=== PATIENT | female | born 1955 | race African-American/Black ===

== ENCOUNTER 2016-12-09 12:31 | Emergency (ER) | payer SELFPAY ==
[2016-12-09 13:22] VITALS: BP 166/85
[2016-12-09] MEDS ORDERED: Tetracaine 0.5% OPTH.SOL 15ML* BTL ONE (15:03)
[2016-12-09] MEDS ORDERED: Fluorescein Sodium TOPICAL* 1 MG TEST ONE (15:03)
[2016-12-09] MEDS ORDERED: BSS OPTH.SOL* BTL ONE (15:03)
--- NOTE | 2016-12-09 15:16 | UC ---
Eye Complaint HPI - HPI Summary HPI Summary: 61 female presents complaining of left eye pain after scratching her eye upon waking this morning 12/09/16. Patient states she frequently scratches her eye due to dry eyes and her lid getting caught on old corneal abrasions. This morning the pain was 10/10 however it has since subsided. She is light sensitive and has been wearing sunglasses. She was at first unable to open her eye at all and it was very teary. Now, she is able to open her eye without minimal pain however it is still light sensitive. Denies any other issues at this time. Denies foreign body. Describes it as feeling like "a piece of sand stuck in my eye". She tried using her moisturizing drops without much relief. She does not wear contact lenses. Denies changes in vision/loss of vision at this time. Slightly blurry at times. - History of Current Complaint Chief Complaint: UCEye Stated Complaint: EYE ISSUE Time Seen by Provider: 12/09/16 14:36 Hx Obtained From: Patient ?: No Onset/Duration: Sudden Onset Timing: Constant Severity Initially: Severe Severity Currently: Mild Pain Intensity: 5 Pain Scale Used: 0-10 Numeric Location of Injury: Globe, Sclera Aggravating Factor(s): Light, Blinking Alleviating Factor(s): Darkness Associated Signs And Symptoms: Positive: Photophobia, Drainage (Clear) - Risk Factors Penetrating Injury Risk Factor: Negative Globe Rupture Risk Factors: Negative Acute Glaucoma Risk Factors: Negative Optic Artery Occlusion Risk Factors: Negative - Allergies/Home Medications Allergies/Adverse Reactions: Allergies Allergy/AdvReac Type Severity Reaction Status Date / Time Ciprofloxacin [From Cipro] Allergy Intermediate skin red Verified 12/09/16 13:10 Nitrofurantoin Allergy Intermediate skin red Verified 12/09/16 13:10 [From Macrodantin] Sulfa Drugs Allergy Intermediate skin red Verified 12/09/16 13:10 eggs,milk Allergy Severe Diarrhea Uncoded 12/09/16 13:10 PMH/Surg Hx/FS Hx/Imm Hx Endocrine History Of: Denies: Diabetes, Thyroid Disease Cardiovascular History Of: Reports: Hypertension - ON MEDS Denies: Cardiac Disorders, Pacemaker/ICD Respiratory History Of: Denies: COPD, Asthma GI/ History Of: Denies: Ulcer Cancer History Of: Denies: Breast Cancer - Surgical History Surgical History: Yes Surgery Procedure, Year, and Place: C-sections x 5 - Family History Known Family History: Positive: Unknown - Social History Alcohol Use: None Substance Use Type: None Smoking Status (MU): Never Smoked Tobacco Review of Systems Constitutional: Negative Skin: Negative Eyes: Blurred Vision, Drainage, Photophobia, Other - pain ENT: Negative Respiratory: Negative Cardiovascular: Negative Gastrointestinal: Negative Motor: Negative Neurovascular: Negative Musculoskeletal: Negative Neurological: Negative Psychological: Negative All Other Systems Reviewed And Are Negative: Yes Physical Exam Triage Information Reviewed: Yes Appearance: Well-Appearing, No Pain Distress, Well-Nourished Vital Signs: Initial Vital Signs Temp 97.6 F 12/09/16 13:12 Pulse 61 12/09/16 13:12 Resp 16 12/09/16 13:12 BP 166/85 12/09/16 13:12 Pulse Ox 98 12/09/16 13:12 Vital Signs Reviewed: Yes Eyes: Positive: Conjunctiva Clear, Other: - erythema and swelling not noted. patient was able to open eye. normal visual acuity. PEERLA. photophobia left eye. upon fluroscein stain linear uptake visualized on lateral left eye on sclera approximately .25cm in length linear corneal abrasion. no edema noted ENT: Positive: Normal ENT inspection, Hearing grossly normal, Pharynx normal, TMs normal Neck: Positive: Supple, Nontender Respiratory: Positive: Chest non-tender, Lungs clear, Normal breath sounds Cardiovascular: Positive: RRR, No Murmur, Pulses Normal Abdominal Exam: Normal Musculoskeletal Exam: Normal Neurological Exam: Normal Psychological Exam: Normal Skin Exam: Normal Procedures - Eye Procedure Alcaine Drops Administered: Yes - before flouroscein stain, left eye Eye Complaint Course/Dx - Course Course Of Treatment: patient will be prescribed antibiotic eye drops to use to prevent infection of corneal abrasion. told to continue moisturizing and follow up with eye doctor. instructed not to wear contact lenses. - Differential Dx/Diagnosis Differential Diagnosis/HQI/PQRI: Conjunctivitis, Corneal Abrasion, Foreign Body , Uveitis Provider Diagnoses: corneal abrasion Discharge - Discharge Plan Condition: Stable Disposition: HOME Prescriptions: Polymyx/Trimethoprim OPTH* [Polytrim OPHTH*] 1 drop LEFT EYE Q3H #1 btl Patient Education Materials: Corneal Abrasion (ED) Referrals: [facility] [Outside] Additional Instructions: Use antibiotic drops every 3 hours for the next 5 days to help prevent infection. continue using ibuprofen for pain and moisturizing drops in eye. wait atleast 30 minutes before using moisturizing drops after antibiotic drops. Hot/cold compresses may help. Follow up with eye doctor is recommended. Continue wearing sunglasses for light sensitivity. Do not wear contact lenses and try to keep fingers out of your eye.
== END 2016-12-09 15:20 | disposition home or self-care (01) ==
LOC: UCEAST 12:31
DX: S05.02XA Injury of conjunctiva and corneal abrasion without foreign body, left eye, initial encounter (principal); X58.XXXA Exposure to other specified factors, initial encounter; Y93.89 Activity, other specified; Y92.9 Unspecified place or not applicable; I10 Essential (primary) hypertension; Z88.1 Allergy status to other antibiotic agents; Z88.2 Allergy status to sulfonamides
CPT/HCPCS: 99212; A9270-GY; G0463

== ENCOUNTER 2017-07-02 12:45 | Emergency (ER) | payer SELFPAY ==
[2017-07-02 12:55] VITALS: BP 133/85
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
== END 2017-07-02 13:23 | disposition home or self-care (01) ==
LOC: UCEAST 12:45
DX: M54.2 Cervicalgia (principal); M25.571 Pain in right ankle and joints of right foot; M25.562 Pain in left knee; Z88.2 Allergy status to sulfonamides; Z88.3 Allergy status to other anti-infective agents; Z91.02 Food additives allergy status; Z91.011 Allergy to milk products; I10 Essential (primary) hypertension
CPT/HCPCS: 99212; G0463

== ENCOUNTER 2017-08-16 12:51 | Emergency (ER) | payer BC ==
[2017-08-16] MEDS ORDERED: Aspirin Low Dose CHEW TAB* 81 MG PO ONE (13:02)
--- NOTE | 2017-08-16 13:17 | ED ---
HPI Chest Pain - HPI Summary HPI Summary: Patient presents to the ED with chest pain since last evening. Pain is described as a discomfort and a tightness in her chest. Endorses palpitations. She denies worsening symptoms with exertion. She states she felt a discomfort last night and thought it was her GERD acting up. She is on omeprazole daily. She did not take any medications for relief and slept through the night without discomfort. Today, she awakes with chest pain and now radiating down to her left arm with jaw pain and LUCERO. She has not taken any medication for relief today. She is on Norvasc, Propanolol and HCTZ. Her BP has been higher recently with knee pain. She has HTN at baseline, but denies surgeries or HCL Family history positive for HTN. She has associated LUCERO. Hx of migraines but this feels different. She has been otherwise healthy. Denies orthopnea or SOB. - History of Current Complaint Chief Complaint: EDChestPainROMI Time Seen by Provider: 08/16/17 13:01 Hx Obtained From: Patient Onset/Duration: Started Hours Ago Timing: Constant Initial Severity: Moderate Current Severity: Moderate Pain Intensity: 4 Pain Scale Used: 0-10 Numeric Chest Pain Location: Discrete at:, Mid Sternal Chest Pain Radiates: Yes Chest Pain Radiates To:: Arm, Jaw Character: Crushing, Dull/Aching Aggravating Factor(s): Nothing Alleviating Factor(s): Nothing Associated Signs and Symptoms: Positive: Chest Pain, Headaches - Risk Factors Pulmonary Embolism Risk Factors: Negative TAD Risk Factors: Negative AMI/ACS Risk Factors: Family History, Hypertension - Allergy/Home Medications Allergies/Adverse Reactions: Allergies Allergy/AdvReac Type Severity Reaction Status Date / Time Ciprofloxacin [From Cipro] Allergy Intermediate skin red Verified 12/09/16 13:10 Nitrofurantoin Allergy Intermediate skin red Verified 12/09/16 13:10 [From Macrodantin] Sulfa Drugs Allergy Intermediate skin red Verified 12/09/16 13:10 eggs,milk Allergy Severe Diarrhea Uncoded 12/09/16 13:10 Home Medications: Home Medications Aspirin EC Low Dose* [Ecotrin EC Low Dose 81 MG*] 81 mg PO DAILY 08/16/17 [ History Confirmed 08/16/17] Propranolol TAB* [Inderal TAB*] 80 mg PO QPM 08/16/17 [History Confirmed ] amLODIPine TAB* [Norvasc 5 mg TAB*] 2.5 mg PO DAILY 08/16/17 [History Confirmed 08/16/17] PMH/Surg Hx/FS Hx/Imm Hx Previously Healthy: Yes Endocrine/Hematology History: Denies: Hx Diabetes, Hx Thyroid Disease Cardiovascular History: Reports: Hx Hypertension - ON MEDS Denies: Hx Pacemaker/ICD Respiratory History: Denies: Hx Asthma, Hx Chronic Obstructive Pulmonary Disease (COPD) GI History: Denies: Hx Ulcer Sensory History: Denies: Hx Hearing Aid Psychiatric History: Denies: Hx Panic Disorder - Cancer History Cancer Type, Location and Year: arthritis, migraines, back pain ?sciatica Hx Chemotherapy: No Hx Radiation Therapy: No - Surgical History Surgery Procedure, Year, and Place: C-sections x 5 - Immunization History Hx Pertussis Vaccination: No Immunizations Up to Date: Unable to Obtain/Confirm Infectious Disease History: No Infectious Disease History: Denies: Hx Clostridium Difficile, Hx Hepatitis, Hx Human Immunodeficiency Virus (HIV), Hx of Known/Suspected MRSA, Hx Shingles, Hx Tuberculosis, Hx Known/ Suspected VRE, Hx Known/Suspected VRSA, History Other Infectious Disease, Traveled Outside the [place] in Last 30 Days - Family History Known Family History: Positive: Unknown - Social History Occupation: Employed Full-time Lives: With Family Alcohol Use: None Hx Substance Use: No Substance Use Type: Reports: None Hx Tobacco Use: No Smoking Status (MU): Never Smoked Tobacco Review of Systems - ROS Summary Review of Systems Summary: Constitutional: The patient denies fever, LUCERO. HEENT: Head: The patient denies headaches or dizziness. Eyes: The patient denies diplopia, blurry vision, eye pain, eye discharge, photophobia. Throat: The patient denies sore throats or hoarseness. Cardiovascular: The patient endorses chest pain, palpitations radiating to the left arm. Denies syncope, night cramps, or orthostasis. Respiratory: The patient denies cough, sputum production, hemoptysis, dyspnea, wheezing. Gastrointestinal: The patient denies odynophagia, dysphagia, hematemesis, melenemesis. Denies abdominal pain, nausea or vomiting. Denies constipation or diarrhea. Genitourinary: Patient denies dysuria, hematuria, or pyuria. Patient denies back pain. Denies vaginal discharge, vaginal bleeding. Denies other urinary symptoms. Endocrine: The patient denies polydipsia, polyuria, or polyphagia. Muscles: The patient denies myalgia, strain or weakness. Joints: The patient denies arthralgia and/or arthritis. Neurologic: The patient denies loss of consciousness, or seizure. Endorses LUCERO. Dermatologic: The patient denies hyperpigmentation, rash, or photosensitivity. Constitutional: Negative Eyes: Negative Positive: Palpitations, Chest Pain Respiratory: Negative Positive: no symptoms reported, see HPI Musculoskeletal: Negative - left knee pain at baseline Positive: Arthralgia Skin: Negative Positive: Headache All Other Systems Reviewed And Are Negative: Yes Physical Exam - Summary Physical Exam Summary: Appearance: WDW, comfortable, pleasant, alert Skin: Soft dry skin, no lesions. Nailbeds pink with no cyanosis or clubbing. No petechia noted. Eyes: MARILYNN, EOMI, Conjunctiva pink with no redness or exudates. Mouth: Dentition without lesions. Moist mucosa Neck: Full range of motion. Palpable thyroid. Trachea at midline. No lymphadenopathy. Pulm: Chest symmetrical expansion. No deformities on posterior chest wall. Lungs clear to auscultation and percussion, without adventitious sounds. CV: No JVD. No deformities on anterior chest wall. Heart soundsRRR, Normal S1 and single S2. No S3, S4, rubs, or murmurs. Carotids 2+ bilaterally without bruits. . exam not performed GI: Soft abdomen, bowel sounds normal. No pain on palpation in all 4 quadrants. No organomegaly. Musculoskeletal: Flexion and extension of neck limited d/t pain. Brudzynski and Kernig sign negative. No deformities noted. Pulses full and equal. Neuro: Motor strength is 5/5 in upper and lower extremities bilaterally. A&OX3 Psych: Logical, coherent Triage Information Reviewed: Yes Vital Signs On Initial Exam: Initial Vitals Temp Pulse Resp BP Pulse Ox 97.9 F 64 18 139/89 98 08/16/17 12:55 08/16/17 12:55 08/16/17 12:55 08/16/17 12:55 08/16/17 12:55 Vital Signs Reviewed: Yes Appearance: Positive: Well-Appearing, Well-Nourished Skin: Positive: Warm, Skin Color Reflects Adequate Perfusion Head/Face: Positive: Normal Head/Face Inspection Eyes: Positive: EOMI, MARILYNN, Conjunctiva Clear Neck: Positive: Supple, No Lymphadenopathy Respiratory/Lung Sounds: Positive: Clear to Auscultation, Breath Sounds Present Cardiovascular: Positive: Normal, RRR, Pulses are Symmetrical in both Upper and Lower Extremities Abdomen Description: Positive: Nontender, No Organomegaly, Soft Bowel Sounds: Positive: Present Musculoskeletal: Positive: Normal, Strength/ROM Intact Neurological: Positive: Normal, Sensory/Motor Intact, Alert, Oriented to Person Place, Time Psychiatric: Positive: Normal AVPU Assessment: Alert Diagnostics - Vital Signs Vital Signs Temp Pulse Resp BP Pulse Ox 08/16/17 12:55 97.9 F 64 18 139/89 98 - Laboratory Result Diagrams: 08/16/17 13:19 08/16/17 13:19 Lab Statement: Any lab studies that have been ordered have been reviewed, and results considered in the medical decision making process. Chest Pain Course/Dx - Course Course Of Treatment: During her course of treatment, patient was given aspirin 325mg on arrival. EKG shows: sinus bradycardia rate <60 Bordernline T abnormalities, anterior leads, T flat or neg. V2-V4 Borderline EKG. Trop 0.01 x 2. VS stable with borderline HTN noted. Chest xray with no acute abnormalities. Patient agrees to follow up with Dr Crews's office tomorrow or Sunday and agrees to plan. Return precautions given. Ibuprofen for LUCERO. LUCERO at this time is 2/10 and left sided. Hx of migraines. Discussed with patient she may need further workup and imaging, but will refer back to PCP. Other labs WNL. - Chest Pain Differential Diagnosis/HQI/PQRI: Acute OK, ACS, Angina - Diagnoses Provider Diagnoses: Chest pain Discharge - Discharge Plan Condition: Stable Disposition: HOME Patient Education Materials: Chest Pain (ED) Referrals: Aly Crews MD [Primary Care Provider] - Additional Instructions: Please follow up with Dr. Crews Call office tomorrow for appt. As discussed, we have not found anything on your blood work, images or EKG to suggest heart or lung problems Please rest the next few days and take ibuprofen 600mg three times daily for headache If you develop worsening symptoms, return to the ED.
--- NOTE | 2017-08-16 13:31 | RAD ---
HISTORY: Chest pain COMPARISONS: February 09, 2010 VIEWS: 1: frontal portable view of the chest at 1:09 PM FINDINGS: LINES AND TUBES: None. CARDIOMEDIASTINAL SILHOUETTE: The cardiomediastinal silhouette is normal for portable technique. PLEURA: The costophrenic angles are sharp. No pleural abnormalities are noted. LUNG PARENCHYMA: The lungs are clear. ABDOMEN: The upper abdomen is clear. There is no subphrenic gas. BONES AND SOFT TISSUES: Degenerative changes are noted of the spine IMPRESSION: NO ACTIVE CARDIOPULMONARY DISEASE.
[2017-08-16 13:50] LABS: Hematocrit 41 % (35-47); Hemoglobin 13.9 g/dl (12.0-16.0); Mean Corpuscular HGB Conc 34 g/dl (31-36); Mean Corpuscular Hemoglobin 28 pg (27-31); Mean Corpuscular Volume 83 fL (80-97); Mean Platelet Volume 9 um3 (7.4-10.4); Red Blood Count 4.93 10^6/ul (4.0-5.4); Red Cell Distribution Width 15 % (10.5-15); White Blood Count 5.8 10^3/ul (3.5-10.8)
[2017-08-16 14:08] LABS: Albumin 3.7 g/dL (3.2-5.2); BUN/Creatinine Ratio 15.6 (8-20); Calcium 9.1 mg/dL (8.6-10.3); EGFR African American 82.1 (>60); EGFR Non-African American 63.9 (>60); Globulin 3.7 g/dL (2-4); Magnesium 1.7 mg/dL (1.9-2.7); Potassium 3.2 mmol/L (3.5-5.0); Total Bilirubin 0.7 mg/dL (0.2-1.0); Total Protein 7.4 g/dL (6.4-8.9)
[2017-08-16 14:11] LABS: Troponin I 0.01 ng/mL (<0.04)
[2017-08-16 17:01] VITALS: BP 139/91
== END 2017-08-16 17:01 | disposition home or self-care (01) ==
LOC: ED 12:51
DX: R07.89 Other chest pain (principal); R68.84 Jaw pain; R00.2 Palpitations; R51 Headache; R00.1 Bradycardia, unspecified; M25.562 Pain in left knee; K21.9 Gastro-esophageal reflux disease without esophagitis; I10 Essential (primary) hypertension; Z79.82 Long term (current) use of aspirin; Z88.2 Allergy status to sulfonamides; Z88.1 Allergy status to other antibiotic agents; Z91.012 Allergy to eggs
CPT/HCPCS: 36415; 71010; 80053; 82550; 82553; 83605; 83735; 83874; 83880; 84484; 85025; 85610; 85730; 87040; 93005; 99283; A9270-GY

== ENCOUNTER 2017-10-17 10:31 | Observation (INO) | payer BC ==
[2017-10-17] MEDS ORDERED: Diazepam TAB(*) 5 MG ONE (11:41)
[2017-10-17] MEDS ORDERED: diPHENhydraMINE PO* 25 MG ONE (11:42)
[2017-10-17] MEDS ORDERED: fentaNYL* 50 MCG/ML 2 ML VIAL (100 MCG VIAL) ONE (11:57)
[2017-10-17] MEDS ORDERED: Heparin(*) 1000 UNIT/ML 10 ML VIAL CATH LAB IV ONE (11:57)
[2017-10-17] MEDS ORDERED: Midazolam* 1 MG/ML 10 ML VIAL (10 MG) ONE (11:58)
[2017-10-17] MEDS ORDERED: nitroGLYCERIN DRIP* 25,000 MCG/250 ML BTL ONE ×2 (11:58→14:37)
[2017-10-17] MEDS ORDERED: VERAPAMIL 2.5 MG/ML 4 ML VIAL ONE (11:58)
[2017-10-17] MEDS ORDERED: Lidocaine 1% INJ* 10 MG/ML 30 ML SDV ONE (11:58)
[2017-10-17] MEDS ORDERED: Heparin 2 UNITS/ML IVPREMIX* 2,000 ML IV ONE (11:58)
[2017-10-17] MEDS ORDERED: Iohexol 350 (CONTRAST) 200 ML MDV IV ONE ×2 (12:10→14:05)
[2017-10-17] MEDS ORDERED: Ticagrelor* 90 MG TAB PO ONE (13:35)
[2017-10-17] MEDS ORDERED: Aspirin Low Dose CHEW TAB* 81 MG ONE (13:35)
[2017-10-17] MEDS ORDERED: Nitroglycerin TAB 0.4 MG* 0.4 MG TAB SL PRN (14:51)
[2017-10-17] MEDS ORDERED: oxyCODONE/Acetamin 5/325 MG* TAB PO PRN (14:54)
[2017-10-17] MEDS ORDERED: Albuterol HFA INHALER* 8 gm MDI INH PRN (14:58)
[2017-10-17] MEDS ORDERED: NS 0.9% 1000 ML* 1,000 ML IV SCH (15:00)
[2017-10-17 16:28] LABS: Troponin I 0.01 ng/mL (<0.04)
[2017-10-17 16:53] LABS: HDL Cholesterol 52.3 mg/dL
[2017-10-17] MEDS: Propranolol TAB* 80 MG PO SCH (18:43)
[2017-10-17] MEDS ORDERED: nitroGLYCERIN DRIP* 25,000 MCG/250 ML BTL IV SCH (20:00)
[2017-10-17] MEDS: Ticagrelor* 90 MG TAB PO SCH (20:29)
[2017-10-18 06:57] LABS: BUN/Creatinine Ratio 12.4 (8-20); EGFR African American 83.2 (>60); EGFR Non-African American 64.7 (>60); Potassium 3.3 mmol/L (3.5-5.0)
[2017-10-18] MEDS: Hydrochlorothiazide TAB* 25 MG PO SCH (07:50)
[2017-10-18] MEDS: Aspirin Low Dose CHEW TAB* 81 MG PO SCH (07:50)
[2017-10-18] MEDS: Propranolol TAB* 40 MG PO SCH (07:50)
[2017-10-18] MEDS: Ticagrelor* 90 MG TAB PO SCH ×2 (07:51→21:28)
[2017-10-18] MEDS: amLODIPine TAB* 5 MG PO SCH (07:51)
[2017-10-18] MEDS: Omeprazole CAP* 20 MG PO SCH (07:51)
[2017-10-18] MEDS ORDERED: Potassium Chlor TAB* 20 MEQ TAB.ER PO ONE (09:57)
[2017-10-18] MEDS: Atorvastatin* 80 MG TAB PO SCH ×2 (10:31→17:06)
[2017-10-18] MEDS: Propranolol TAB* 80 MG PO SCH (17:06)
--- NOTE | 2017-10-18 23:53 | CATH ---
CC: Dr. Crews; Dr. Gibson * STENT REPORT: DATE OF PROCEDURE: 10/17/17 - ROOM #452 PRIMARY CARE PHYSICIAN: Dr. Crews. STRETCHING PRESS OPERATOR: Dr. Gibson. PROCEDURES: Right radial artery access, bilateral selective coronary cineangiography. Left heart catheterization, left ventriculography, stent placement LAD distal to proximal 2.25 x 12, 2.5 x 28, 2.5 x 32 drug-eluting stents post dilated with 2.25, 2.5, and 2.75 mm noncompliant balloons. HISTORY: A 62-year-old -[place] woman with morbid obesity and hypertension, 1 month of progressive limiting angina, and Lexiscan with anteroapical moderate zone of ischemia, intermediate risk referred for coronary angiography. PROCEDURE ACCESS: Right radial artery sheath 6F Slender. MEDICATIONS: 1. Subcu lidocaine. 2. IV Versed. 3. IV fentanyl. 4. Heparin 3000 units. 5. Verapamil 3 mg. 6. Nitroglycerin 300 mcg IA, IC nitroglycerin 300 mcg LCA. 7. Heparin 4000 units IV. 8. IV nitroglycerin infusion post procedure. DIAGNOSTIC CATHETER: 5F TIG4, 5F pigtail. GUIDING CATHETER: LAD 6F, LBU 3.5, wire 14 BMW. The LAD required predilatation with a 2.25 mm balloon over most of the area stented. A 2.25 x 12 Xience alpine stent was the deployed at the distal LAD stenosis, 10 atmospheres 20 seconds, post- dilated with a 2.25 x 8 non-NC balloon, 12 atmospheres 10 seconds, and then in the middle of the stent to 20 atmospheres for 30 seconds. A Xience 2.5 x 28 drug- eluting stent was then deployed, overlapping approximately in the first stent 14 atmospheres 20 seconds, a Synergy 2.5 x 32 drug-eluting stent was then deployed then overlapping in the proximal end of the mid LAD stent 11 atmospheres 10 seconds. The 2.75 x 30 NC balloon was then inserted and used to post dilate the proximal half of the 2.5 mm mid LAD stent and the proximal LAD stent to 16 atmospheres 30 seconds, 18 atmospheres 25 seconds. Hemostasis was achieved with a radial band. HEMODYNAMICS: Initial BP 161/70, LV 118/16, no aortic valve gradient on pullback. ANGIOGRAPHY: Left Main: The left main is normal in size and length, has no stenosis. LAD: The LAD is approximately large and then abruptly tapers after the first septal physician underwriter, and then has a very lengthy disease to the distal third of the LAD with a tubular moderate stenosis extending to the moderate first diagonal, which has 30% to 40% ostial stenosis. Just beyond the diagonal, the LAD has a tubular severe approximate 80% stenosis, then reconstitutes for a centimeter, then again has lengthy tubular 80% stenosis before reconstituting, finally followed by a tubular 80% stenosis at the junction of the mid and distal portions of the LAD. The LAD has AZEB-2 flow. Circumflex: The circumflex is large, not dominant, with a small ramus, large first marginal, moderate posterolateral and ends with a small posterolateral, the circumflex has no significant stenosis. The LAD stenosis was unchanged after IC nitroglycerin. RCA: The RCA is large, dominant with a large PDA followed by smaller posterolateral. The RCA has luminal irregularity, but no significant stenosis. LV Gram: Wall motion is normal except for very focal minimal apical hypokinesis , estimated LVEF 55%. After predilatation and placement of 3-0 overlapping drug-eluting stents LAD including jailing of the diagonal branch. The LAD has AZEB-3 flow, the mid LAD has jailed septals that have diminished flow compared to pre-stenting. The jailed diagonal has again 40% ostial stenosis with AZEB-3 flow. There is a smooth 15% residual stenosis beyond the diagonal. CONCLUSION: 1. Single vessel disease LAD with lengthy complex disease, excellent angiographic result with placement of 3 drug-eluting overlapping stents. 2. Normal LV systolic function. 3. Successful right radial artery access. 4. Post stent placement, diminished flow in mid LAD septal perforators accompanied by chest tightness without EKG changes, treated with IV nitroglycerin with subsequent resolution,Type 4a NSTEMI. [id number]/[facility] #: [id number] [facility]
[2017-10-19 08:49] VITALS: BP 138/69
[2017-10-19] MEDS: amLODIPine TAB* 5 MG PO SCH (10:24)
[2017-10-19] MEDS: Aspirin Low Dose CHEW TAB* 81 MG PO SCH (10:24)
[2017-10-19] MEDS: Propranolol TAB* 40 MG PO SCH (10:24)
[2017-10-19] MEDS: Ticagrelor* 90 MG TAB PO SCH (10:24)
[2017-10-19] MEDS: Omeprazole CAP* 20 MG PO SCH (10:25)
[2017-10-19] MEDS: Hydrochlorothiazide TAB* 25 MG PO SCH (10:25)
--- NOTE | 2017-10-20 02:35 | DS ---
CC: Dr. Crews; Dr. Gibson DISCHARGE SUMMARY: DATE OF ADMISSION: 10/17/17 DATE OF DISCHARGE: 10/19/17 PRIMARY CARE PHYSICIAN: Aly Crews MD BULK COOLER INSTALLER: Heather Gibson MD DISCHARGE DIAGNOSES: 1. Non-ST elevation infarct type 4A post PCI. 2. Angina. 3. Abnormal stress test. 4. Morbid obesity. 5. Hyperlipidemia. 6. Hypertension. CONDITION ON DISCHARGE: Stable. PROCEDURES: Cardiac cath, right radial approach on 10/17/17 Dr. Baird, stent placement LAD distal t o proximal 2.25 x 12, 2.5 x 28, 2.5 x 32 drug eluting stents. Telemetry. TELEMETRY DISCHARGE MEDICATIONS: Unchanged. 1. Albuterol. 2. Norvasc 5 mg daily. 3. Hydrochlorothiazide 50 mg daily. 4. Prilosec 20 mg daily. 5. Propranolol 80 mg q.p.m., 40 mg q.a.m. 6. New medication: Brilinta 90 mg b.i.d. minimum 1 year without interruption. With DAPT score of 3, a total of three years of DAPT is recommended. Given her 3 overlapping stents in the LAD, I would r ecommend indefinite DAPT if tolerated. 7. Lipitor 80 mg daily. 8. Aspirin decreased to 81 mg daily to minimize use of Naprosyn. 9. Nitroglycerin 0.4 sublingual p.r.n. FOLLOWUP: Wrist check as scheduled at [facility] and with Dr. Crews as previously. ACTIVITY: To avoid lifting more than 20 pounds right hand, 2 days wound care shower only for two day s. HISTORY: See outpatient H and P by Dr. Gibson. LABORATORY DATA: Preprocedure BMP notable only for potassium of 3.3 likely due to her hydrochlorothi azide. GFR 79.1 with creatinine of 0.93. CBC normal. EKG shows nonspecific ST-T wave changes. Postprocedure EKG remained unchanged with nonspecific ST-T wave changes. Post PCI BMP again hypokale tanya at 3.3, creatinine 0.89. Her troponin peaked at 1.47 with subsequent decrease. She evolved no E KG changes. HOSPITAL COURSE: She underwent outpatient catheterization for evaluation of limiting angina on medic al therapy with intermediate risk anterolateral ischemia by imaging. Cath via the radial approach wa s uncomplicated, demonstrate normal LV systolic function and 1-vessel disease with lengthy complex, d iffuse disease of the LAD involving the entire mid LAD. This was stented with 3 overlapping stents w ith excellent angiographic result. With stenting, she had transient chest discomfort without EKG klever nges, with angiographic evidence of reduce flow in mid LAD small septal perforators. She subsequentl y had troponin rise to 1.47 consistent with type 4A non-ST elevation infarct due to coronary interven tion. She had no arrhythmias. She was kept in the hospital an additional 24 hours for monitoring wi thout any recurrence of chest pain. She had no problems of right wrist access site. She had no arrh ythmias. No heart failure symptoms. She was started on Lipitor because of the high LDL of 159. Cho lesterol was 232, triglycerides 103, HDL 52.3. On the day of discharge, vitals are stable. She is a symptomatic, the right hand is unremarkable. She has received full discharge instructions. I review ed with her uninterrupted dual antiplatelet therapy for minimum of 1 year with the recommendation for subsequent dual antiplatelet therapy for a total of 3 years per the DAPT trial. I also discussed wi th them indefinite dual antiplatelet therapy because of the length of stent of segment in the LAD. W e also discussed activity with secondary risk factor modification. She will follow up for wrist chec k as scheduled, continue follow up with Dr. Gibson. [id number]/[facility] #: [id number]
== END 2017-10-19 14:00 | disposition home or self-care (01) ==
LOC: CHICATH 10:31 → ICU 15:26 → MEDTELE 10-18 15:33
PROVIDERS: ADMIT Internal Medicine Cardiovascular Disease; ATTEND Internal Medicine Cardiovascular Disease
DX: I25.10 Atherosclerotic heart disease of native coronary artery without angina pectoris (principal); I21.4 Non-ST elevation (NSTEMI) myocardial infarction; I20.9 Angina pectoris, unspecified; E66.01 Morbid (severe) obesity due to excess calories; E78.5 Hyperlipidemia, unspecified; I10 Essential (primary) hypertension; Z79.82 Long term (current) use of aspirin; Z79.899 Other long term (current) drug therapy; Z88.2 Allergy status to sulfonamides; Z88.1 Allergy status to other antibiotic agents; Z91.012 Allergy to eggs; Z91.011 Allergy to milk products; Z91.018 Allergy to other foods; Z91.09 Other allergy status, other than to drugs and biological substances; J45.909 Unspecified asthma, uncomplicated
CPT/HCPCS: 36415; 80048; 80061; 84484; 93005; 93458; 99156; 99157; A9270-GY; C1725; C1876; C1887; C9600-LD; G0378; J1644; J2250; J3010

== ENCOUNTER 2017-12-05 13:25 | Emergency (ER) | payer BC ==
--- OUTSIDE RECORDS SUMMARY | 2017-12-05 13:32 | XMS REPORT ---
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 Active Onset: 12/13/2016 Pain in calf Aly Crews M.D. Active Onset: 08/02/2016 Obesity Aly Crews M.D. Active Onset: 08/02/2016 Joint pain Aly Crews M.D. Active Onset: 02/24/2015 Multiple joint pain Aly Crews M.D. Active Onset: 10/05/2014 Acute upper respiratory infection Aly Crews M.D. Active Onset: 09/01/2014 Arthralgia of the lower leg Aly rCews M.D. Active Onset: 02/11/2014 Orthostatic hypotension Aly Crews M.D. Active Onset: 07/23/2012 Acute bronchitis Aly Crews M.D. Active Onset: 07/10/2012 Backache Aly Crews M.D. Active Onset: 04/30/2012 Essential hypertension Aly Crews M.D. Active Social History Type Date Description Comments Smoking Patient has never smoked Allergies, Adverse Reactions, Alerts Date Description Reaction Status Severity Comments Sulfa Drugs active Cipro active Macrodantin active 10/11/2009 Milk active 10/11/2009 Eggs active 10/11/2009 Yeast-related active 03/20/2016 Seasonal active Medications Medication Date Status Form Strength Qnty SIG Indications Ordering Provider Aspirin 81 Low 10/31 Active Chewtabs 81mg 1 by Aly Moralez mouth Breiman, every day M.D. Norvasc 10/31 Active Tablets 5mg 30tab 1 by Aly Rabago s mouth Bessiman, every day M.DCynthia Lipitor 10/31 Active Tablets 80mg 1 by Aly Rabago mouth Breimajoanne, every day M.D. @ 5pm Potassium 10/31 Active Tablets ER 20Meq 30tab bid Aly Rabago Chloride /2016 monica Crews M.D. Brilinta 10/31 Active Tablets 90mg 180ta 1 by Aly Rabago bs mouth Breimajoanne, twice a M.D. day Hydrochlorothiazi 07/18 Active Tablets 50mg 30tab 1 by Aly carrera s mouth Bessiman, every day M.DCynthia Nasonex 12/31 Active Suspension 50mcg/Act 17gm 2 H69.92 Aly Rabago sprays/no Breiman, stril/d M.DCynthia has failed on generics as needed Proventil HFA 10/05 Active Aerosol 108(90Bas 1unit inhale Aly Rabago e) s two puffs Breiman, mcg/Act by mouth M.DCynthia every 4 to 6 hours as needed shortness ofbreath Propranolol HCL 12/24 Active Tablets 40mg 270ta take 1 Aly Rabago bs tablets Breiman, every M.D. morning and take 2 tablets at bedtime Pantoprazole 03/[address] 40mg 90tab Take One Aly Ferrari s Tablet By Breiman, Mouth M.D. Every Day Multivitamin Active Tablets 1 by Unknown Adult /0000 mouth every day prn Isosorbide Active Tablets 30mg Unknown Dinitrate /0000 Aspirtab 08/[address] 324mg Aly Rabago Eleonora, - M.D. 10/31 Norvasc 08/01 Hx Tablets 2.5mg 30tab 1 by Aly Rabago s mouth Eleonora, - every day M.D. 10/31 Medrol 12/13 Hx Tablets 4mg 1pack dose-pack Aly Rabago as Eleonora, - instructe M.D. 01/02 Hydrochlorothiazi 04/24 Hx Tablets 25mg 30tab 1 by Janice s mouth [facility], - every day [facility] 04/24 Propranolol HCL 04/24 Hx Tablets 40mg 90tab 1 tab po s qam and 2 [place], - tabs at [facility]- 04/24 Guaifenesin-Codei 03/20 Hx Syrup 100-10mg/ 120ml 1-[address] [facility], - by mouth np-C 03/27 every hours as needed cough Physical Therapy 02/24 Hx treatment Aly Rabago and Eleonora, - evaluatio M.D. 11/08 n l side upper r side from accident Work Excuse 02/24 Hx unable to Aly Rabago work for [facility], - at least M.D. 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 11/30 Vicodin 09/01 Hx Tablets 5-300mg 30tab 1 by Aly Rabago s mouth at [facility], - night M.DCynthia 11/08 call Guiatuss ac 03/31 Hx Syrup 100-10mg/ 8oz 1-2 tsp q Daisy 5ML 4h prn Amish - cough GRID TRIMMER 05/16 Work Excuse 03/04 Hx unable to Aly Rabago work Aguila Crews this week M.DCynthia 09/01 return sunday the Aspirin Ec 10/[address] 81mg 90tab Take One Aly Rabago s Tablet By Eleonora - Mouth M.DCynthia 03/20 Every Diflucan 09/08 Hx Tablets 150mg 1tabs 1 po x 1 465.0 Delaney CARRIE Pelayo - 02/11 Zithromax Z-Gerardo 07/23 Hx Tablets 250mg 1Pack as Aly Rabago /2011 directed Aguila Crews M.D. 09/02 Physical 07/10 Hx needs PT Aly Rabago Therapy to back Eleonora - include MCarlos 12/06 aqua therapy Hydrochlorothiazi 04/30 Hx Tablets 25mg 90tab take one Daisy s tablet by Amish - mouth GRID TRIMMER 07/18 Physical Therapy 02/01 Hx needs PT Aly Rabago /2010 to back [place]ora - and Felicia 04/30 Zithromax Z-Gerardo 09/13 Hx Tablets 250mg 1Pack as Aly Rabago /2009 directed Aguila Crews M.D. 12/03 Furosemide 07/13 Hx Tablets 20mg 90tab take 1 Aly Rabago s tablet by Eleonora - hernesto M.DCynthia 03/20 once daily Losartan 04/02 Hx Tablets 100mg 90tab Take One Aly Rabago s Tablet By Aguila Crews Mouth M.DCynthia 03/20 Every /2015 Aspir-81 03/[address] 81mg 90tab 1 po qd Aly Rabago /2009 s Aguila Crews M.D. 08/17 Luzma D 24H 03/14 Hx 30uni 1 po qd 461.9 Aly Rbaago /2009 ts Aguila Crews M.D. Back To Work 10/15 Hx PT is Aly Rabago able to Ele[place]ora, - return to M.D. 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 Physical Therapy 10/13 Hx treatment 719.46 Aly Rabago and Eleonora, - evaluatishilpi M.DCynthia 02/11 n right knee pain. workers comp-PT needs to con't with this treatment Work Excuse 10/11 Hx unable to Aly Rabago work [facility], - until M.D. 02/11 Physical Therapy 10/11 Hx needs pt Aly Rabago to drea Crews, - ankle r M.D. 10/13 knee Work Excuse 10/04 Hx unable to Aly Rabago work for [employer], - 1-2 wks M.D. 02/11 Medrol (Gerardo) 10/04 Hx Tablets 4mg 1tabs Aly Rabago Aguila Crews M.DCynthia 11/12 Work Excuse 09/27 Hx patient Aly Rabago has [facility] - appointme M.D. 10/04 nt with 10/04/o9 dt Cozaar 05/17 Hx Tabs 100mg 30tab take 1 Aly Rabago s tablet [place]ora, - once M.D. 04/30 Cozaar 03/31 Hx Tablets 50mg 60tab 1 po bid Aly Rabago s Aguila Crews M.DCynthia 05/17 Proventil HFA 01/07 Hx Aerosol 108mcg/Ac 1unit 2 puffs Aly Rabago t s every 4 Ele[facility]ora - hours as M.D. shortness of breath Robitussin A-C 01/07 Hx 8Oz 1-2 tsp po qhs Aguila Arteaga M.D. 03/31 Out Of Work 01/07 Hx pt seen by omari mahoney, - out of M.D. 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 01/07 Doxycycline 01/02 Hx Capsules 100mg 20cap 1 PO bid Aly J. s Aguila Crews M.D. 01/25 Protonix 06/19 Hx Tablets 40mg 90tab 1 po q.D Aguila Leong M.D. 03/31 Work Excuse 06/19 Hx May Cynthia Return To [facility], - Work M.DCynthia 11/15 Tomorr Keflex 12/02 Hx 500mg 20uni 1 po bid ts Amish, - GRID TRIMMER 11/15 Advair 250/50 12/02 Hx 250/50 1unit one s inhalatio Amish, - ns bid GRID TRIMMER 11/15 Nasonex 12/02 Hx Suspension 50mcg/Act 1unit 2 sprays Deepali De La Rosa s Aguila López nostril Felicia Flexeril 09/12 Hx Tabs 10mg 30tab 1 po tid Daisy s prn Amish, - muscle GRID TRIMMER 11/15 spasm Robitussin ac 11/08 Hx 4Oz 1-2 tsp Janice /[facility] Afnp-C 11/16 Physical Therapy 04/18 Hx treatment Aly Hima /2003 and Eleonora - evaluatio MCarlos 11/15 n right /2005 shoulder, neck and bilateral arm pain Transderm-Scop 11/24 Hx 7unit Use Q Aly Rabago s Three Eleonora, - Days M.D. 01/25 Work Excuse 09/21 Hx unable to Aly Hima /2002 work Ele[place]ora, - until M.D. 12/2809/28/03 Robitussin ac 04/07 Hx 4Oz 1-[address] [facility], - prn Cough Afnp-C 04/14 Doxycycline 04/07 Hx 100mg 20uni 1 PO bid [facility] 04/17 Keflex 12/30 Hx 500 20uni 1 bid X Nilda ts 10 Days Yoly, - Afnp-C 01/09 Lidex Solution 12/30 Hx 60ml apply qd Aly JCynthia prn to Eleonora - walter MCarlos 04/20 Keflex 12/06 Hx 500 20uni 1 bid Collin T. ts Katie - Felicia 12/30 Prilosec 09/19 Hx 20 30uni 1 PO qd Aly JCynthia ts Aguila Crews M.D. 08/17 Lamisil Cream 06/23 Hx 1% 15GMS apply to Aleisha R affected [place], - area bid GRID TRIMMER-C 04/18 Lasix 06/23 Hx 40mg 15uni /2 po Aleisha R ts qod [place], - GRID TRIMMER-C 04/18 Lasix 06/23 Hx Tablets 20mg 30tab one po Aly JCynthia s daily prn Aguila Crews M.D. 05/14 Prednisone 05/15 Hx 10mg 20uni 4 qd x Daisy /2001 ts 2d, 3 qd Amish, - x 2d, 2 GRID TRIMMER 04/18 qd x 2d, /2003 1 qd x 2d Indomethacin 02/07 Hx 25mg Cap 30uni one tid Aly JCynthia ts prn Aguila Crews arthritis Felicia 04/18 Robitussin ac 08/22 Hx 4Oz 1-2 TSP PO Q4H Yoly - geoffreyn Afnp-C 09/01 Inderal 07/04 Hx 40mg 270un 1 po q am Aly Rabago its Aguila Crews M.D. 04/30 2 PO /2011 QHS Doxycycline 11/10 Hx 100mg 20uni 1 PO bid Orestes S. yoandy Mcdonald M.D. - 11/20 Robitussin ac 11/10 Hx Liq 4Oz 1 TSP PO Orestes S. Q4HS prn Felicia Mcdonald - Cough 11/20 Tylox 10/15 Hx 36uni 1 Q8 H Victor Manuel A. ts prn Aguila Kay M.D. 10/27 Darvocet N 100 09/25 Hx 0 100mg/65O 0unit 1 Q4H prn [facility] 10/15 Of Ultram 04/25 Hx 50mg 1 PO Q4H prn [facility] 09[facility]25 [facility] [place] Amitriptyline 04/25 Hx 25mg 120un 1 At hs its prn [facility] 01/21 Of Ceftin 02/06 Hx 250mg 20uni PO bid X ts 10 Days Aguila Frederick 02/16 Amoxicillin 11/08 Hx 250mg 30uni 1 PO tid Romeo MCynthia Aguila Darling M.D. 11/18 Prevacid 03/30 Hx 30 10uni 1 PO qd Aly Rabago Aguila Sorensen M.D. 04/25 Cozaar 10/06 Hx Tabs 50mg 30tab take s tablet by Aguila Arteaga M.D. 03/31 once /2008 daily Zesteril 09/28 Hx 5mg. 30uni 1 PO qd Aly Rabago Aguila Sorensen M.D. 10/06 Robitussin ac 08/25 Hx 4Oz 1-2 TSP Aly Rabago /1997 PO Q4H Aguila Crews Cough M.D. 11/22 Claritin-D, 12HR 08/20 Hx Tabs 30tab one qd Aly Rabago /1997 s Aguila Blake M.D. 01/06 Relafen 05/15 Hx 500mg 20uni 2 PO qd Orestes S. /1997 ts With Yuliet Mcdonald M.D. - Meal 06/04 Azmacort Inhaler 11/16 Hx 1unit use bid Aly Rabago /Carmelo s Aguila Crews M.D. 08/17 Inderal LA 10/28 Hx 40mg 90uni 1qam,2QHS Aly Rabago /1996 Aguila Sorensen M.D. 07/04 Ceftin 10/28 Hx 250mg 20uni 1 po bid Mindy /1997 Aguila Gonzalez M.D. 03/31 Robitussin ac 10/28 Hx 4Oz 1-2 TSP Aly Rabago /1996 PO Q4H Aguila Crews M.D. 03/19 Amoxicillin 09/09 Hx 250mg 24uni 1 PO tid Aly Rabago /1996 Aguila Sorensen M.D. 10/28 Lasix 05/22 Hx 20mg 30uni 1 po qd ts Aguila Krishnamurthy Afnp-C 04/18 Imitrex 05/22 Hx 50mg 9unit 1 po prn Aly Rabago /1996 Aguila Nogueira M.D. 04/30 Nortriptyline 05/22 Hx 20mg 0unit 1 PO qd Aly Rabago /1996 Aguila Nogueira M.D. 10/28 Naprosyn 05/22 Hx 500mg 60uni 1 po bid Aly Rabago /1996 ts Aguila Blake M.D. 04/20 Tramadol HCL 00 Hx Tablets 50mg 1 by Unknown /0000 mouth - every 6 05/16 hours needed Zanaflex 0000 Hx Capsules 4mg 1 by Unknown /0000 mouth - every6- 8 /16 hours needed for spasm Medications Administered in Office Medication Date Status Form Strength Qnty SIG Indications Ordering Provider Injection 01/06/ Administered Injection Aly Rabago Subcutaneous Or 2007 Roselyn Crews M.D. TB Intradermal 04/13/ Administered Injection Aly Lal 2002 Felicia Crews Injection 10/15/ Administered Injection Victor Manuel Blake Subcutaneous Or 1999 Roselyn Kay M.D. Immunizations CPT Code Status Date Vaccine Lot # [id number] Given 08/02/2016 Tdap Tetanus, W Pertussis [id number] Vital Signs Date Vital Result Comment 11/30/2017 BP Systolic 122 mmHg BP Diastolic 78 mmHg Heart Rate 80 /min Body Temperature 98.0 F Respiratory Rate 18 /min Height 59 inches 4'11" Weight 214.00 lb BMI (Body Mass Index) 43.2 kg/m2 10/31/2017 BP Systolic 126 mmHg BP Diastolic 84 mmHg Heart Rate 72 /min Body Temperature 98.6 F Respiratory Rate 16 /min Height 59 inches 4'11" Weight 219.00 lb BMI (Body Mass Index) 44.2 kg/m2 08/17/2017 BP Systolic 112 mmHg BP Diastolic 74 mmHg Heart Rate 64 /min Body Temperature 98.4 F Respiratory Rate 18 /min O2 % BldC Oximetry 98 % Height 59 inches 4'11" Weight 219.38 lb BMI (Body Mass Index) 44.3 kg/m2 08/01/2017 BP Systolic 128 mmHg BP Diastolic 90 mmHg Heart Rate 68 /min Body Temperature 97.7 F Respiratory Rate 16 /min Height 59 inches 4'11" Weight 220.00 lb BMI (Body Mass Index) 44.4 kg/m2 07/18/2017 BP Systolic 142 mmHg BP Diastolic 90 mmHg Heart Rate 68 /min Body Temperature 97.5 F Height 59 inches 4'11" Weight 224.12 lb BMI (Body Mass Index) 45.3 kg/m2 02/06/2017 BP Systolic 122 mmHg BP Diastolic 70 mmHg Heart Rate 66 /min Body Temperature 97.9 F Respiratory Rate 16 /min Height 59 inches 4'11" Weight 224.25 lb BMI (Body Mass Index) 45.3 kg/m2 12/13/2016 BP Systolic 132 mmHg BP Diastolic 84 mmHg Heart Rate 68 /min Body Temperature 97.3 F Respiratory Rate 18 /min Height 59 inches 4'11" Weight 234.00 lb BMI (Body Mass Index) 47.3 kg/m2 08/02/2016 BP Systolic 140 mmHg BP Diastolic 80 mmHg Heart Rate 68 /min Body Temperature 97.9 F Respiratory Rate 18 /min Height 59 inches 4'11" Weight 232.00 lb BMI (Body Mass Index) 46.9 kg/m2 04/24/2016 BP Systolic 122 mmHg BP Diastolic 72 mmHg Heart Rate 64 /min Body Temperature 99.0 F Height 59 inches 4'11" Weight 232.50 lb BMI (Body Mass Index) 47.0 kg/m2 03/20/2016 BP Systolic 134 mmHg BP Diastolic 70 mmHg Heart Rate 64 /min Body Temperature 98.1 F Respiratory Rate 16 /min Height 59 inches 4'11" Weight 230.50 lb BMI (Body Mass Index) 46.6 kg/m2 12/31/2015 BP Systolic 110 mmHg BP Diastolic 80 mmHg Heart Rate 80 /min Body Temperature 9.0 F Respiratory Rate 18 /min Height 59 inches 4'11" Weight 229.00 lb BMI (Body Mass Index) 46.2 kg/m2 11/08/2015 BP Systolic 140 mmHg BP Diastolic 70 mmHg Heart Rate 62 /min Body Temperature 97.8 F Respiratory Rate 29 /min Height 59 inches 4'11" Weight 231.00 lb BMI (Body Mass Index) 46.7 kg/m2 03/03/2015 BP Systolic 136 mmHg BP Diastolic 80 mmHg Heart Rate 78 /min Body Temperature 97.4 F Respiratory Rate 18 /min Height 59 inches 4'11" Weight 225.00 lb BMI (Body Mass Index) 45.4 kg/m2 02/24/2015 BP Systolic 140 mmHg BP Diastolic 80 mmHg Heart Rate 74 /min Body Temperature 97.8 F Respiratory Rate 20 /min Height 59 inches 4'11" Weight 223.00 lb BMI (Body Mass Index) 45.0 kg/m2 11/30/2014 BP Systolic 120 mmHg BP Diastolic 80 mmHg Heart Rate 76 /min Body Temperature 101.2 F Respiratory Rate 18 /min Height 59 inches 4'11" Weight 226.00 lb BMI (Body Mass Index) 45.6 kg/m2 10/05/2014 BP Systolic 136 mmHg BP Diastolic 80 mmHg Heart Rate 66 /min Body Temperature 97.7 F Respiratory Rate 18 /min Height 59 inches 4'11" Weight 231.00 lb BMI (Body Mass Index) 46.7 kg/m2 09/15/2014 BP Systolic 134 mmHg BP Diastolic 80 mmHg Heart Rate 64 /min Body Temperature 97.1 F Respiratory Rate 20 /min Height 59 inches 4'11" Weight 231.00 lb BMI (Body Mass Index) 46.7 kg/m2 09/01/2014 BP Systolic 140 mmHg BP Diastolic 72 mmHg Heart Rate 62 /min Body Temperature 97.8 F Respiratory Rate 20 /min Height 59 inches 4'11" Weight 231.00 lb BMI (Body Mass Index) 46.7 kg/m2 03/04/2014 BP Systolic 118 mmHg BP Diastolic 84 mmHg Heart Rate 78 /min Body Temperature 96.7 F Height 59 inches 4'11" 02/11/2014 BP Systolic 122 mmHg BP Diastolic 70 mmHg Heart Rate 64 /min Body Temperature 96.7 F Respiratory Rate 18 /min Height 59 inches 4'11" Weight 237.00 lb BMI (Body Mass Index) 47.9 kg/m2 09/08/2013 BP Systolic 120 mmHg BP Diastolic 80 mmHg Heart Rate 88 /min Body Temperature 98.3 F Respiratory Rate 16 /min Height 59 inches 4'11" Weight 242.00 lb BMI (Body Mass Index) 48.9 kg/m2 06/13/2013 BP Systolic 122 mmHg BP Diastolic 80 mmHg Heart Rate 72 /min Body Temperature 97.5 F Respiratory Rate 16 /min Height 59 inches 4'11" Weight 245.00 lb BMI (Body Mass Index) 49.5 kg/m2 03/05/2013 BP Systolic 168 mmHg BP Diastolic 104 mmHg Heart Rate 90 /min Body Temperature 98.4 F Height 59 inches 4'11" Weight 247.38 lb BMI (Body Mass Index) 50.0 kg/m2 12/06/2012 BP Systolic 130 mmHg BP Diastolic 90 mmHg Heart Rate 68 /min Body Temperature 97.3 F Height 59 inches 4'11" Weight 247.00 lb BMI (Body Mass Index) 49.9 kg/m2 09/02/2012 BP Systolic 132 mmHg BP Diastolic 82 mmHg Heart Rate 66 /min Body Temperature 98.0 F Height 59 inches 4'11" Weight 252.00 lb BMI (Body Mass Index) 50.9 kg/m2 07/23/2012 BP Systolic 120 mmHg BP Diastolic 88 mmHg Heart Rate 72 /min Body Temperature 98.2 F O2 % BldC Oximetry 97 % Height 59 inches 4'11" Weight 253.00 lb BMI (Body Mass Index) 51.1 kg/m2 07/10/2012 BP Systolic 130 mmHg BP Diastolic 90 mmHg Heart Rate 68 /min Body Temperature 97.4 F Height 59 inches 4'11" Weight 252.00 lb BMI (Body Mass Index) 50.9 kg/m2 05/14/2012 BP Systolic 144 mmHg BP Diastolic 100 mmHg Heart Rate 72 /min Body Temperature 97.8 F Height 59 inches 4'11" Weight 254.00 lb BMI (Body Mass Index) 51.3 kg/m2 04/30/2012 BP Systolic 144 mmHg BP Diastolic 104 mmHg Heart Rate 62 /min Body Temperature 97.0 F Height 59 inches 4'11" Weight 248.00 lb BMI (Body Mass Index) 50.1 kg/m2 02/01/2011 BP Systolic 142 mmHg BP Diastolic 80 mmHg Heart Rate 76 /min Body Temperature 98.2 F Height 59 inches 4'11" Weight 255.00 lb BMI (Body Mass Index) 51.5 kg/m2 09/13/2010 BP Systolic 140 mmHg BP Diastolic 84 mmHg Heart Rate 92 /min Body Temperature 98.2 F 03/14/2010 BP Systolic 112 mmHg BP Diastolic 76 mmHg Heart Rate 98.6 /min Body Temperature 76.0 F Height 59 inches 4'11" Weight 249.00 lb BMI (Body Mass Index) 50.3 kg/m2 02/11/2010 BP Systolic 140 mmHg BP Diastolic 90 mmHg Heart Rate 80 /min Weight 248.00 lb 11/12/2009 BP Systolic 128 mmHg BP Diastolic 80 mmHg Heart Rate 80 /min Body Temperature 97.0 F Height 59 inches 4'11" Weight 255.00 lb BMI (Body Mass Index) 51.5 kg/m2 10/11/2009 BP Systolic 140 mmHg BP Diastolic 82 mmHg Heart Rate 66 /min Body Temperature 97.5 F Weight 251.00 lb 10/04/2009 BP Systolic 150 mmHg BP Diastolic 90 mmHg Heart Rate 76 /min Weight 252.00 lb 03/31/2009 BP Systolic 146 mmHg BP Diastolic 94 mmHg Heart Rate 84 /min Height 59 inches 4'11" Weight 252.00 lb BMI (Body Mass Index) 50.9 kg/m2 01/07/2009 BP Systolic 140 mmHg BP Diastolic 90 mmHg Heart Rate 80 /min Body Temperature 98.7 F Weight 222.00 lb 09/07/2008 BP Systolic 140 mmHg BP Diastolic 88 mmHg Heart Rate 76 /min Height 59 inches 4'11" Weight 259.00 lb BMI (Body Mass Index) 52.3 kg/m2 04/20/2008 BP Systolic 128 mmHg BP Diastolic 80 mmHg Heart Rate 68 /min Height 59 inches 4'11" Weight 258.00 lb BMI (Body Mass Index) 52.1 kg/m2 01/07/2008 BP Systolic 112 mmHg BP Diastolic 70 mmHg Heart Rate 72 /min Height 59 inches 4'11" 03/08/2007 BP Systolic 124 mmHg BP Diastolic 82 mmHg Heart Rate 66 /min Body Temperature 97.2 F Respiratory Rate 15 /min Height 59 inches 4'11" 11/06/2006 BP Systolic 126 mmHg BP Diastolic 82 mmHg Heart Rate 82 /min Body Temperature 99.0 F Respiratory Rate 15 /min Height 59 inches 4'11" 06/25/2006 BP Systolic 120 mmHg BP Diastolic 62 mmHg Heart Rate 72 /min Height 59 inches 4'11" Weight 251.00 lb BMI (Body Mass Index) 50.7 kg/m2 03/06/2006 BP Systolic 112 mmHg BP Diastolic 60 mmHg Heart Rate 72 /min Height 59 inches 4'11" 01/02/2006 BP Systolic 132 mmHg BP Diastolic 80 mmHg Body Temperature 98.2 F Height 59 inches 4'11" 11/15/2005 BP Systolic 120 mmHg BP Diastolic 80 mmHg Heart Rate 68 /min Height 59 inches 4'11" Weight 240.00 lb BMI (Body Mass Index) 48.5 kg/m2 08/21/2005 BP Systolic 126 mmHg BP Diastolic 84 mmHg Heart Rate 76 /min Body Temperature 98.7 F Height 59 inches 4'11" Weight 238.00 lb BMI (Body Mass Index) 48.1 kg/m2 06/19/2005 BP Systolic 110 mmHg BP Diastolic 60 mmHg Heart Rate 60 /min Height 59 inches 4'11" Weight 242.00 lb BMI (Body Mass Index) 48.9 kg/m2 12/02/2004 BP Systolic 126 mmHg BP Diastolic 82 mmHg Heart Rate 80 /min Body Temperature 98.7 F Height 59 inches 4'11" 09/12/2004 BP Systolic 130 mmHg BP Diastolic 80 mmHg Heart Rate 74 /min Body Temperature 98.4 F Height 59 inches 4'11" 08/17/2004 BP Systolic 100 mmHg BP Diastolic 80 mmHg Body Temperature 96.2 F Height 59 inches 4'11" Weight 240.00 lb BMI (Body Mass Index) 48.5 kg/m2 04/18/2004 BP Systolic 124 mmHg BP Diastolic 82 mmHg Heart Rate 72 /min Height 59 inches 4'11" Weight 237.00 lb BMI (Body Mass Index) 47.9 kg/m2 12/28/2003 BP Systolic 120 mmHg BP Diastolic 80 mmHg Heart Rate 72 /min Height 59 inches 4'11" Weight 239.00 lb BMI (Body Mass Index) 48.3 kg/m2 11/24/2003 BP Systolic 120 mmHg BP Diastolic 70 mmHg Heart Rate 74 /min Height 59 inches 4'11" Weight 243.00 lb BMI (Body Mass Index) 49.1 kg/m2 09/21/2003 BP Systolic 118 mmHg BP Diastolic 78 mmHg Heart Rate 72 /min Height 59 inches 4'11" Weight 253.00 lb BMI (Body Mass Index) 51.1 kg/m2 04/13/2003 BP Systolic 136 mmHg BP Diastolic 90 mmHg Heart Rate 80 /min Body Temperature 97.1 F Height 59 inches 4'11" Weight 244.00 lb BMI (Body Mass Index) 49.3 kg/m2 04/07/2003 BP Systolic 122 mmHg BP Diastolic 80 mmHg Body Temperature 98.3 F Height 59 inches 4'11" Weight 237.00 lb BMI (Body Mass Index) 47.9 kg/m2 12/30/2002 BP Systolic 134 mmHg BP Diastolic 76 mmHg Heart Rate 88 /min Height 59 inches 4'11" Weight 244.00 lb BMI (Body Mass Index) 49.3 kg/m2 12/06/2002 BP Systolic 138 mmHg BP Diastolic 92 mmHg Heart Rate 80 /min Body Temperature 97.7 F Height 59 inches 4'11" 10/27/2002 BP Systolic 116 mmHg BP Diastolic 82 mmHg Heart Rate 80 /min Body Temperature 97.3 F Height 59 inches 4'11" 09/19/2002 BP Systolic 114 mmHg BP Diastolic 70 mmHg Heart Rate 76 /min Body Temperature 98.1 F Height 59 inches 4'11" Weight 237.00 lb BMI (Body Mass Index) 47.9 kg/m2 06/23/2002 BP Systolic 120 mmHg BP Diastolic 65 mmHg Body Temperature 98.5 F Height 59 inches 4'11" 05/15/2002 BP Systolic 128 mmHg LG Cuff BP Diastolic 80 mmHg LG Cuff Heart Rate 76 /min Height 59 inches 4'11" Weight 237.00 lb BMI (Body Mass Index) 47.9 kg/m2 02/07/2002 BP Systolic 122 mmHg BP Diastolic 74 mmHg Height 59 inches 4'11" Weight 234.00 lb BMI (Body Mass Index) 47.3 kg/m2 12/17/2001 BP Systolic 110 mmHg BP Diastolic 70 mmHg Heart Rate 84 /min Height 59 inches 4'11" Weight 233.00 lb BMI (Body Mass Index) 47.1 kg/m2 12/04/2001 BP Systolic 130 mmHg BP Diastolic 96 mmHg Heart Rate 64 /min Height 59 inches 4'11" Weight 234.00 lb BMI (Body Mass Index) 47.3 kg/m2 08/22/2001 BP Systolic 128 mmHg BP Diastolic 88 mmHg Heart Rate 78 /min Body Temperature 98.9 F Respiratory Rate 16 /min Height 59 inches 4'11" Weight 239.00 lb BMI (Body Mass Index) 48.3 kg/m2 06/19/2001 BP Systolic 120 mmHg BP Diastolic 80 mmHg Heart Rate 64 /min Height 59 inches 4'11" Weight 242.00 lb BMI (Body Mass Index) 48.9 kg/m2 01/21/2001 BP Systolic 120 mmHg LG Cuff BP Diastolic 90 mmHg LG Cuff Heart Rate 80 /min Height 59 inches 4'11" Weight 245.00 lb BMI (Body Mass Index) 49.5 kg/m2 11/10/2000 Heart Rate 72 /min Body Temperature 97.6 F Weight 244.00 lb 09/25/2000 BP Systolic 120 mmHg BP Diastolic 70 mmHg Heart Rate 62 /min Weight 238.00 lb 08/08/2000 BP Systolic 112 mmHg BP Diastolic 64 mmHg Weight 241.00 lb 06/26/2000 BP Systolic 112 mmHg BP Diastolic 80 mmHg Weight 241.00 lb 04/25/2000 BP Systolic 120 mmHg BP Diastolic 80 mmHg Heart Rate 80 /min Weight 242.00 lb 03/01/2000 BP Systolic 120 mmHg LA LG Cuff BP Diastolic 80 mmHg LA LG Cuff 02/07/2000 Body Temperature 98.2 F 01/19/2000 BP Systolic 112 mmHg LA LG Cuff BP Diastolic 80 mmHg LA LG Cuff 12/08/1999 BP Systolic 112 mmHg LA LG Cuff BP Diastolic 76 mmHg LA LG Cuff 11/22/1999 Body Temperature 96.7 F Weight 233.00 lb 11/08/1999 Body Temperature 98.1 F 11/03/1999 BP Systolic 130 mmHg LA LG Cuff BP Diastolic 70 mmHg LA LG Cuff Weight 228.00 lb 03/30/1999 BP Systolic 128 mmHg LG Cuff BP Diastolic 80 mmHg LG Cuff Body Temperature 98.3 F Weight 228.50 lb 11/02/1998 BP Systolic 112 mmHg LG Cuff BP Diastolic 70 mmHg LG Cuff Weight 228.00 lb 10/06/1998 BP Systolic 110 mmHg LG Cuff BP Diastolic 80 mmHg LG Cuff Weight 226.50 lb 09/27/1998 BP Systolic 142 mmHg LA LG Cuff BP Diastolic 82 mmHg LA LG Cuff Body Temperature 97.4 F Weight 227.00 lb 08/20/1998 BP Systolic 100 mmHg LG Cuff BP Diastolic 70 mmHg LG Cuff Body Temperature 97.7 F Weight 226.00 lb 05/15/1998 BP Systolic 120 mmHg BP Diastolic 78 mmHg 03/19/1998 BP Systolic 110 mmHg BP Diastolic 78 mmHg Weight 227.50 lb 11/16/1997 Body Temperature 97.9 F Height 59.00 inches 10/28/1997 Body Temperature 99.5 F Height 59.00 inches 4'11" Weight 217.00 lb 09/09/1997 BP Systolic 108 mmHg BP Diastolic 60 mmHg Body Temperature 98.0 F Weight 215.00 lb Results Test Date Test Result H/L Range Note Laboratory test finding 08/16/2017 Partial Thrombo 34.4 seconds 26.0- 36.3 Time PTT Lactic Acid 0.8 mmol/L 0.5-2.0 1 B-Type Natriuretic Peptide BNP 38 pg/mL 2 Inr/Protime 08/16/2017 Inr 0.93 0.89-1.11 CBC Auto Diff 08/16/2017 White Blood Count 5.8 10^3/uL 3.5-10.8 Red Blood Count 4.93 10^6/uL 4.0-5.4 Hemoglobin 13.9 g/dL 12.0-16.0 Hematocrit 41 % 35-47 Mean Corpuscular Volume 83 fL 80-97 Mean Corpuscular Hemoglobin 28 pg 27-31 Mean Corpuscular HGB Conc 34 g/dL 31-36 Red Cell Distribution Width 15 % 10.5-15 Platelet Count 304 10^3/uL 150-450 Mean Platelet Volume 9 um3 7.4-10.4 Abs Neutrophils 2.6 10^3/uL 1.5-7.7 Abs Lymphocytes 2.4 10^3/uL 1.0-4.8 Abs Monocytes 0.5 10^3/uL 0-0.8 Abs Eosinophils 0.3 10^3/uL 0-0.6 Abs Basophils 0 10^3/uL 0-0.2 Abs Nucleated RBC 0 10^3/uL Granulocyte % 45.3 % 38-83 Lymphocyte % 40.2 % 25-47 Monocyte % 8.5 % 1-9 Eosinophil % 5.3 % 0-6 Basophil % 0.7 % 0-2 Nucleated Red Blood Cells % 0 CKMB 08/16/2017 CKMB ng/mL 0.9 ng/mL 0.6-6.3 Laboratory test finding 08/16/2017 Magnesium 1.7 mg/dL Low 1.9-2.7 Creatine Kinase(CK) 46 U/L 10-223 Troponin I 0.01 ng/mL <0.04 Myoglobin 19.8 ng/mL 14.3-65.8 Comp Metabolic Panel 08/16/2017 Sodium 137 mmol/L 133-145 Potassium 3.2 mmol/L Low 3.5-5.0 Chloride 103 mmol/L 101-111 Co2 Carbon Dioxide 25 mmol/L 22-32 Anion Gap 9 mmol/L 2-11 Glucose 102 mg/dL High 70-100 Blood Urea Nitrogen 14 mg/dL 6-24 Creatinine 0.90 mg/dL 0.51-0.95 BUN/Creatinine Ratio 15.6 8-20 Calcium 9.1 mg/dL 8.6-10.3 Total Protein 7.4 g/dL 6.4-8.9 Albumin 3.7 g/dL 3.2-5.2 Globulin 3.7 g/dL 2-4 Albumin/Globulin Ratio 1.0 1-3 Total Bilirubin 0.70 mg/dL 0.2-1.0 Alkaline Phosphatase 77 U/L 34-104 Alt 14 U/L 7-52 Ast 15 U/L 13-39 Egfr Non- 63.9 >60 Egfr 82.1 >60 3 Laboratory test finding 08/16/2017 Blood Culture SEE RESULT BELOW 4 Laboratory test finding 08/16/2017 Blood Culture SEE RESULT BELOW 5, 6 Laboratory test finding 08/16/2017 Troponin I 0.01 ng/mL <0.04 CBC Electronic (Fma) 08/05/2016 WBC 8.6 3.6-9.6 RBC 4.93 3.90-5.70 Hemoglobin (Fma/CMC/CTX) 13.9 g/dL 12.1 - 17.2 Hematocrit ([facility]ma/CMC/CTX) 41.7 % 36.1 - 50.3 Platelets 289 10^3/ul 150-400 Lymph% 40.0 % 17.0-48.0 Mixed% 7.1 Neutrophils % 52.9 Mean Corpuscular Vol 85 82.2-97.4 Mean Corpuscular Hemoglobin 28.3 27.6-33.3 Mean Corpuscular Hemo Concen 33.4 32.0-36.0 RDW 14.4 High 11.6-13.7 Mean Platelet Volume 7.2 5.5-11.0 Comprehensive Metabolic Prof 08/05/2016 Sodium 140 mEq/L 134-149 Potassium 4.1 mEq/L 3.6-5.5 Chloride 100 mEq/L 94-112 Carbon Dioxide 24 mEq/L 21-32 Glucose 117 mg/dL High 70-105 7 BUN 23 mg/dL 6-26 Creatinine 1.0 mg/dL 0.6-1.4 BUN/Creat Ratio 23.0 CALC 8.0-36.0 Calcium 9.3 mg/dL 8.6-10.2 Total Protein 7.4 g/dL 6.4-8.3 Albumin 4.0 g/dL 3.8-5.5 Globulin 3.4 g/dL 2.0-4.8 A/G Ratio 1.2 CALC 0.6-2.3 Alk. Phosphatase 77 U/L 30-110 Alt (SGPT) 18 U/L 7-35 Ast (Sgot) 17 U/L 5-34 Total Bilirubin 0.4 mg/dL 0.2-1.3 GFR Non- 60 ml/min/1.73m^ >=60 GFR >60 ml/min/1.73m^ >=60 Lipid Profile 08/05/2016 Cholesterol 230 mg/dL High 120-200 Triglycerides 94 mg/dL 30-200 HDL Cholesterol 56 mg/dL 30-85 LDL (Calculated) 155 CALC High 0-129 VLDL Cholesterol 19 mg/dL 0-50 HDL Risk Factor 4.1 CALC 0.0-4.4 Influenza A&B-fma 11/30/2014 Influenza A pos Influenza B neg Laboratory test finding 10/05/2014 Quickstrep NEGATIVE Negative Comprehensive Metabolic Prof 02/11/2014 Sodium 144 mEq/L 134-149 Potassium 3.5 mEq/L Low 3.6-5.5 8 Chloride 101 mEq/L 94-112 Carbon Dioxide 26 mEq/L 21-32 Glucose 107 mg/dL High 70-105 9 BUN 20 mg/dL 6-26 Creatinine 1.1 mg/dL 0.6-1.4 BUN/Creat Ratio 18.2 CALC 8.0-36.0 Calcium 9.9 mg/dL 8.6-10.2 Total Protein 7.6 g/dL 6.3-8.1 Albumin 4.5 g/dL 3.8-5.5 Globulin 3.1 g/dL 2.0-4.8 A/G Ratio 1.5 CALC 0.6-2.3 Alk. Phosphatase 88 U/L 30-110 Alt (SGPT) 21 U/L 7-35 Ast (Sgot) 13 U/L 5-34 Total Bilirubin 0.7 mg/dL 0.2-1.3 CBC Electronic ([facility]) 02/11/2014 WBC 7.3 3.6-9.6 RBC 4.61 3.90-5.70 Hemoglobin (a/CMC/CTX) 12.9 g/dL 12.1 - 17.2 Hematocrit ([facility]/CMC/CTX) 38.8 % 36.1 - 50.3 Platelets 330 10^3/ul 150-400 Lymph% 39.3 % 17.0-48.0 Mixed% 5.4 Neutrophils % 55.3 Mean Corpuscular Vol 84 82.2-97.4 Mean Corpuscular Hemoglobin 28.0 27.6-33.3 Mean Corpuscular Hemo Concen 33.2 32.0-36.0 RDW 14.2 High 11.6-13.7 Mean Platelet Volume 8.5 5.5-11.0 Comprehensive Metabolic Prof 03/05/2013 Albumin 4.3 g/dL 3.8-5.5 Alk. Phos. 96 U/L 30-110 Alt (SGPT) 22 U/L 7-35 Ast (Sgot) 14 U/L 5-34 BUN 15 mg/dL 6-26 Calcium 9.1 mg/dL 8.6-10.2 Chloride 102 mEq/L 94-112 Creatinine 1.0 mg/dL 0.6-1.4 Carbon Dioxide 24 mEq/L 21-32 Glucose 134 mg/dL High 70-105 10 Sodium 140 mEq/L 134-149 Total Bilirubin 0.6 mg/dL 0.2-1.3 Total Protein 7.4 g/dL 6.3-8.1 Potassium 3.5 mEq/L Low 3.6-5.5 11 Globulin 3.1 g/dL 2.0-4.8 A/G Ratio 1.4 Calc 0.6-2.3 BUN/Creat Ratio 14.5 Calc 8.0-36.0 Lipid Profile 03/05/2013 Cholesterol 245 mg/dL High 120-200 HDL 46 mg/dL 30-85 Triglycerides 126 mg/dL 30-200 HDL Risk Factor 5.3 CALC High 0.0-4.4 LDL (Calculated) 173 CALC High 0-129 VLDL (Calculated) 25 mg/dL 0-50 CBC Electronic ([facility]ma) 03/05/2013 WBC 6.6 3.6-9.6 RBC 4.65 3.90-5.70 Hemoglobin (Fma/CMC/CTX) 13.0 g/dL 12.1 - 17.2 Hematocrit (Fma/CMC/CTX) 39.8 % 36.1 - 50.3 Platelets 321 10^3/ul 150-400 Lymph% 40.7 20.5-51.1 Mixed% 6.6 Neutrophils % 52.7 Mean Corpuscular Vol 86 82.2-97.4 Mean Corpuscular Hemoglobin 28.0 27.6-33.3 Mean Corpuscular Hemo Concen 32.7 32.0-36.0 RDW 12.6 11.6-13.7 Mean Platelet Volume 7.9 6.5-11.0 CBC With Electronic Diff Stat 02/09/2010 White Blood Count 7.5 CUMM 4.8- 10.8 Red Cell Count 4.39 CUMM 4.2-5.4 Hemoglobin 12.5 g/dL 12.0-16.0 Hematocrit 37 % 35-47 Mean Corpuscular Volume 83 um3 79-97 Mean Corpuscular Hemoglob 28 pg 27-31 Mean Corpuscular HGB Cone 34 g/dL 32-36 Redcell Distribution WDTH 15 % 10.5-15 Platelet Count 281 CUMM 150-450 Mean Platelet Volume 9.0 um3 7.4-10.4 Gran % 44.0 % 38-83 Lymph % 43.0 % 25-47 Mononuclear % 8.0 % 1-9 Eosinophil % 3.8 % 0-6 Basophil % 1.2 % 0-2 Abs Lymphs 3.2 1.0-4.8 Abs Mononuclear 0.6 0-0.8 Absolute Neutrophil Count 3.3 1.5-7.7 Abs Eosinophils 0.3 0-0.6 Abs Basophils 0.1 0-0.2 Protime Stat 02/09/2010 Inr 1.05 High 0.97-1.03 12 Protime 12.4 SEC High 11.5-12.2 13 PTT (Aptt) Stat 02/09/2010 PTT (Aptt) 36.3 25.15-38.53 14 Comp Stat 02/09/2010 Sodium 140 mmol/L 135-145 Potassium 3.4 mmol/L Low 3.5-5.0 Chloride 106 mmol/L 101-111 Co2 (Carbon Dioxide) 28.0 mmol/L 22-32 Anion Gap 6.0 mmol/L 2-11 15 Glucose 95 mg/dL 70-100 16 BUN 14 mg/dL 6-24 Creatinine 0.81 mg/dL 0.50-1.40 One Over Creatinine 1.20 BUN/Creatinine Ratio 17.3 8-20 Calcium 8.7 mg/dL 8.1-9.9 17 Total Protein 7.5 GM/DL 6.2-8.1 Albumin 3.7 GM/DL 3.6-5.4 Globulin 3.8 GM/DL 2-4 Albumin/Globulin Ratio 1.0 1-3 Bilirubin Total 0.6 mg/dL 0.4-1.5 18 Alkaline Phosphatase 92 U/L 30-110 Alt (SGPT) 28 U/L 14-54 Ast (Sgot) 28 U/L 12-42 eGFR Non- 78.9 > 60 eGFR 95.5 > 60 19 Laboratory test finding 02/09/2010 Troponin-I (TnI) 0 NG/ML 20 CBC With Electronic Diff 02/27/2008 White Blood Count 7.1 CUMM 4.8-10.8 Abs Basophils 0 0-0.2 Abs Eosinophils 0.2 0-0.6 Absolute Neutrophil Count 3.6 1.5-7.7 Abs Lymphs 2.7 1.0-4.8 Abs Mononuclear 0.5 0-0.8 Basophil % 0.5 % 0-2 Hematocrit 40 % 35-47 Hemoglobin 13.4 g/dL 12.0-16.0 Eosinophil % 3.3 % 0-6 Gran % 50.4 % 38-83 Lymph % 38.8 % 20-45 Mean Corpuscular HGB Cone 34 g/dL 32-36 Mean Corpuscular Hemoglob 28 pg 27-31 Mean Corpuscular Volume 83 um3 79-97 Mean Platelet Volume 9.2 um3 7.4-10.4 Mononuclear % 7.0 % 1-9 Platelet Count 286 CUMM 150-450 Red Cell Count 4.76 CUMM 4.2-5.4 Redcell Distribution WDTH 15 % 10.5-15 Comp Metabolic Panel 02/27/2008 One Over Creatinine 1.25 Anion Gap 4.0 mmol/L 2-11 21 Albumin/Globulin Ratio 1.2 1-3 Albumin 3.5 GM/DL Low 3.6-5.4 Alkaline Phosphatase 94 U/L 30-110 Alt (SGPT) 22 U/L 14-54 Ast (Sgot) 17 U/L 12-42 BUN 13 mg/dL 6-24 Calcium 8.9 mg/dL 8.7-10.2 Chloride 107 mmol/L 101-111 Co2 (Carbon Dioxide) 31.0 mmol/L 22-32 Globulin 2.9 GM/DL 2-4 Glucose 133 mg/dL High 70-105 Potassium 4.5 mmol/L 3.5-5.0 Sodium 142 mmol/L 135-145 Bilirubin Total 0.7 mg/dL 0.4-1.5 Total Protein 6.4 GM/DL 6.2-8.1 BUN/Creatinine Ratio 16.3 8-20 Creatinine 0.8 mg/dL 0.5-1.4 Urinalysis W/Microscopic 02/27/2008 Ua Color YELLOW Appearance-Urine HAZY Bacteria-Urine 3+ Bilirubin-Ur NEGATIVE Negative Blood-Urine 2+ Negative Epith Cells-Ur MODERATE Esterase-Urine TRACE Negative Glucose-Urine NEGATIVE Negative Ketones-Urine NEGATIVE Negative Mucus Urine SMALL Nitrite NEGATIVE Negative PH-Urine 5.0 5-9 Protein-Urine NEGATIVE Negative RBC-Urine 0-2 0-2 Zuuebezspdlu-Fu-YLE NEGATIVE Negative Specific Edwards-Ur 1.024 1.010-1.030 WBC-Urine 5-10 0-5 Laboratory test finding 03/08/2007 Quickstrep NEGATIVE Negative Throat - Beta Strep Fma NEGATIVE @ 48HRS Laboratory test 06/25/2006 Viral Cult. No virus isolate 22 finding General <SEE NOTE> Laboratory test 09/12/2004 Flu A&B POSITIVE Negative finding Basic Metabolic ([facility]) 09/21/2003 Glucose, Serum 128 mg/dL High 70-118 (a/CMC/CTX) BUN (a[place] [place] 13 mg/dL 6-26 Creatinine (a/CMC/CTX) 0.6 mg/dL 0.6-1.4 BUN/Creatinin Ratio 22.8 8.0-36 Sodium 143 134-149 Potassium 4.3 3.6-5.5 Chloride 112 mEq/L 94-112 Co2 27 21-32 Calcium (a[place] [place] 9.5 mg/dL 8.6-10.0 Ua - Non Micro ([facility]) 04/13/2003 Appearance CLEAR/YELLOW Glucose NEG Bilirubin NEG Ketones NEG SP Grav >=1.030 Blood NEG PH 5.0 Protein NEG Urobil 0.2 Nitrite NEG Leukocytes NEG Ua - Micro ([facility]) 06/23/2002 Appearance CLEAR/YELLOW Glucose NEG Bilirubin NEG Ketones NEG SP Grav 1.025 Blood NEG PH 5.0 Protein SSA 1+ Urobil 0.2 Nitrite NEG Leukocytes NEG Hyaline - /Lpf Granular - /Lpf WBC'S 4-8 RBC'S 0-1 Mucus - /Lpf Epith FEW Bacteria 2+ Amorphous - /Lpf Crystals - /Lpf Comments - Comp Metabolic [place] [place] 02/03/2002 Sodium 138 mmol/L 135-145 Potassium 4.0 3.5-5.0 Chloride 101 mmol/L 95-108 Co2 23.3 21-33 Glucose 83 mg/dL 70-105 BUN 11 6-22 Creatinine 0.5 mg/dL 0.5-1.4 BUN/Creatinin Ratio 22.0 High 8-20 Calcium 9.8 mg/dL 8.7-10.2 Total Protein 7.6 GM/DL 6.2-8.1 Albumin 3.9 3.6-5.4 Globulin 3.7 2-4 Albumin / Globulin Ratio 1.1 1-3 Bilirubin, Total 0.5 mg/dL 0.1-1.0 Alkaline Phosphatase 83 U/L 30-110 Alt (SGPT) 15 1-40 Ast (Sgot) 15 1-34 Laboratory test finding 02/03/2002 Uric Acid 3.6 mg/dL 2.4-7.0 CBC With Manual Diff [place] [place] 02/03/2002 WBC 7.0 4.8-10.8 RBC 4.39 4.2-5.4 Hemoglobin 12.6 g/dL 12.0-16.0 Hematocrit 37 % 35-47 Mean Corpuscular Vol 85 79-97 Mean Corpuscular Hemaglobin 29 27-31 Mean Corpuscular Hemo Concen 34 32-36 RDW 14 10.5-15 Platelets 310 CUMM 150-450 Mean Platelet Volume 8.8 7.4-10.4 Poly From [facility] [place] 40 38-83 Band - 0-8 Lymph From [facility] [place] 49 High 5-47 Calloway From [facility] [place] 6 0-13 Eos From [facility] [place] 4 0-6 Atypical Lymph - 0-6 Morphology - Basophils 1 Laboratory test finding 02/03/2002 Anisocytosis 1+ Poikilocytosis SLIGHT Platelet Eval LARGE PLATELETS Sed Rate 16 MM/HR High 0-15 Laboratory test finding 08/22/2001 Throat Culture NEGATIVE Ua - Micro ([facility] [place] 10/25/1999 Color YELLOW Appearance HAZY SP Grav 1.026 1.010-1.030 Esterase TRACE High Negative Nitrite NEGATIVE Negative Urobil POSITIVE High Negative Protein NEGATIVE Negative PH 6.5 5-9 Blood 3+ High Negative Ketones NEGATIVE Negative Bilirubin, Micro NEGATIVE Negative Glucose NEGATIVE mg/dL Negative WBC 3-5 CUMM RBC 0-2 CUMM Mucus N/A Epith FEW Bacteria TRACE [address] [facility] [place] Severe Sepsis and Septic Shock Management Bundle Measure requires all lactic acids initially measuring >2.0 mmol/L be repeated. 2 >100 to <200 pg/mL: likely compensated congestive heart failure (CHF) 200 to 400 pg/mL: likely moderate CHF >400 pg/mL: likely moderate to severe CHF 3 Because ethnic data is not always readily available, this report includes an eGFR for both -Americans and non- Americans. The National Kidney Disease Education Program (NKDEP) does not endorse the use of the MDRD equation for patients that are not between the ages of 18 and 70, are , have extremes of body size, muscle mass, or nutritional status, or are non- or non-. According to the National Kidney Foundation, irrespective of diagnosis, the stage of the disease is based on the level of kidney function: Stage Description GFR(mL/min/1.73 m(2)) 1 Kidney damage with normal or decreased GFR 90 2 Kidney damage with mild decrease in GFR 60-89 3 Moderate decrease in GFR 30-59 4 Severe decrease in GFR 15-29 5 Kidney failure <15 (or dialysis) 4 SEE RESULT BELOW Name: ROXY STARR : [address]: Chad Chaidez MD Acct: [id number] Unit: [id number] AGE: 62 Location: ED Re08/16/17 SEX: F Status: DEP ER SPEC: [id number] KYLE: 08/16/17-[address] [facility] [address]: Vashti THURMAN REQ: [id number] RECD: 08/16/17 STATUS: RES OTHR DR: Aly Chaidez MD _ SOURCE: BLOOD,VENO SPDESC: ORDERED: Blood Cult COMMENTS: COLLECTED FROM RAC Procedure Result Reported Site Aerobic Culture Bottle Preliminary 08/17/17- 1344 ML No Growth Day 1 Anaerobic Culture Bottle Preliminary 08/17/17- 1344 ML No Growth Day 1 * ML - MAIN LAB ([facility]) . END OF REPORT * ML=Testing performed at Main Lab DEPARTMENT OF PATHOLOGY, [address] [place] [address] Romeo Hsieh M.D. Director [facility] # [id number] 5 COLLECTED FROM [facility] SEE RESULT BELOW Name: ROXY STARR : [address]: Chad Chaidez MD Acct: [id number] Unit: [id number] AGE: 62 Location: ED Re08/16/17 SEX: F Status: DEP ER SPEC: [id number] KYLE: 08/16/[address]: Vashti THURMAN REQ: [id number] RECD: 08/16/17 STATUS: KEY MANNING DR: Aly Chaidez MD _ SOURCE: BLOOD,VENO SPDESC: ORDERED: Blood Cult COMMENTS: COLLECTED FROM RAC Procedure Result Reported Site Aerobic Culture Bottle Final 08/21/17- 4 ML No Growth Day 5 Anaerobic Culture Bottle Final 08/21/17- 1343 ML No Growth Day 5 * ML - MAIN LAB ([facility]) . END OF REPORT * ML=Testing performed at Main Lab DEPARTMENT OF PATHOLOGY, [address] [place] [address] Romeo Hsieh M.D. Director [facility] # [id number] 7 RESULTS VERIFIED BY REPEAT ANALYSIS 8 RESULTS VERIFIED BY REPEAT ANALYSIS 9 RESULTS VERIFIED BY REPEAT ANALYSIS 10 RESULT EMELI'D 11 RESULT EMELI'D 12 Recommended INR for Patients on Oral Anticoagulants Prophylaxis 2.0 - 3.0 Treatment of thrombosis 2.0 - 3.0 Prevention of embolism 2.0 - 3.0 Prevention of embolism from prosthetic heart valves 2.5 - 3.5 13 DIAGNOSIS,TREATMENT,AND THERAPY MUST BE BASED ON THE INR VALUE ALONE. 14 PLEASE NOTE NEW REFERENCE RANGE EFFECTIVE 09. 15 Anion gap measurement may be of limited value in the presence of any alkalosis, especially in a combined acid base disorder. . 16 Note change in reference range as of 06/25/08. The change was based on recommendations from the [place] [employer]. 17 Please note change in reference range effective 08 . 18 A metabolite of Naproxen, O-desmethylnaproxen, has been shown to interfere with the [place] method for measuring total bilirubin. Samples from patients who have taken Naproxen have shown spurious elevation in total bilirubin levels. 19 Because ethnic data is not always readily available, this report includes an eGFR for both -Americans and non- Americans. The National Kidney Disease Education Program (NKDEP) does not endorse the use of the MDRD equation for patients that are not between the ages of 18 and 70, are , have extremes of body size, muscle mass, or nutritional status, or are non- or non-. According to the National Kidney Foundation, irrespective of diagnosis, the stage of the disease is based on the level of kidney function: Stage Description GFR(mL/min/1.73 m(2)) 1 Kidney damage with normal or decreased GFR 90 2 Kidney damage with mild decrease in GFR 60-89 3 Moderate decrease in GFR 30-59 4 Severe decrease in GFR 15-29 5 Kidney failure <15 (or dialysis) 20 New Reference Range and Interpretation effective 08/08/2002 TnI (ng/ml) INTERPRETATION Less Than 0.06 ng/mL NOT SUPPORTIVE OF DIAGNOSIS OF SC 0.06 - 0.50 ng/ml INDETERMINATE: SUGGEST SERIAL STUDIES IF CLINICALLY INDICATED. Greater than 0.5 ng/mL CONSISTENT WITH DIAGNOSIS OF SC . 21 Anion gap measurement may be of limited value in the presence of any alkalosis, especially in a combined acid base disorder. . 22 No virus isolated Procedures Date CPT Code Description Status Comment 08/02/2016 53309 Electrocardiogram Complete Completed 03/24/2016 Mammogram Completed 09/15/201409640 Inject/Drain Joint/Bursa Major Completed 07/23/2012 79898 Pulse Oximetry Completed 01/07/2008 27887 Injection Subcutaneous Or Completed Intramuscular 01/07/200832615 Inject Tendon/Ligament/Cyst Completed 12/04/2001 48739 Electrocardiogram Complete Completed 10/15/2000 13394 Injection Subcutaneous Or Completed TORADOL IM LEFT DELT Intramuscular 60MG/2ML-KS 05/15/2000 27955 Excise Benign Lesion <.6CM Completed Trunk/Arm/Leg 09/27/1998 54419 Pulse Oximetry Completed 09/27/1998 74260 Electrocardiogram Complete Completed Encounters Type Date Location Provider CPT E/M Dx Office Visit 10/31/2017 2:00p Main Office Aly Crews M.D. 21085 R07.9 I25.118 I10 M12.9 Office Visit 08/17/2017 2:20p Main Office Aly Crews M.D. 90747 R07.9 Office Visit 08/01/2017 11:20a Main Office Aly Crews M.D. 93142 I10 Office Visit 07/18/2017 11:00a Main Office Aly Crews M.D. 09688 M54.2 I10 M25.562 M79.662 Office Visit 02/06/2017 11:10a [facility] Aly Crews M.D. 85748 M25.562 M79.662 Office Visit 12/13/2016 9:20a Main Office Aly Crews M.D. 20171 M79.662 I10 M25.562 Office Visit 08/02/2016 3:20p Main Office Aly Crews M.D. 32120 Z23 I10 M25.50 E66.09 Z00.00 Office Visit 04/24/2016 1:15p [facility] Matthew Chavez 28361 I10 R60.9 Office Visit 03/20/2016 9:45a [facility] Fide ChavezC 18187 J04.0 Z12.31 R05 Office Visit 12/31/2015 1:30p Main Office Daisy Wellington SHAILESH 51364 H69.92 Office Visit 03/03/2015 2:10p Main Office Aly Crews M.D. 87072 719.49 Office Visit 02/24/2015 5:10p Main Office Aly Crews M.D. 48754 719.49 E880.9 Office Visit 11/30/2014 11:15a [place] [address] 488.89 Office Visit 10/05/2014 10:10a Main Office Aly Crews M.D. 36031 465.9 Office Visit 09/15/2014 1:00p [facility] Aly Crews M.D. 61479 719.46 Office Visit 09/01/2014 3:00p [facility] Aly Crews M.D. 36787 719.46 Office Visit 03/04/2014 3:10p Main Office Aly Crews M.D. 89710 789.02 Office Visit 02/11/2014 2:10p Main Office Aly Crews M.D. 33003 458.0 Office Visit 09/08/2013 7:30p [place] [address] 465.0 Office Visit 06/13/2013 10:10a Main Office Aly Crews M.D. 02338 401.9 Office Visit 03/05/2013 9:40a Main Office Aly Crews M.D. 78400 401.9 Office Visit 12/06/2012 2:10p Main Office Aly Crews M.D. 39028 401.9 719.42 Office Visit 09/02/2012 11:00a Main Office Aly Crews M.D. 45455 401.9 Office Visit 07/23/2012 4:10p [facility] Aly Crews M.D. 43738 466.0 Office Visit 07/10/2012 5:00p Main Office Aly Crews M.D. 66043 401.9 724.5 Office Visit 05/14/2012 4:20p [facility] Aly Crews M.D. 34470 401.9 Office Visit 04/30/2012 3:10p [facility] Aly Crews M.D. 87294 401.9 Office Visit 09/13/2010 3:00p [facility] Aly Crews M.D. 33757 465.9 Office Visit 03/14/2010 2:20p [facility] Deepali Hernandez M.D. 39579 461.9 Office Visit 02/11/2010 11:10a Main Office Aly Crews M.D. 16756 784.0 728.87 Office Visit 03/31/2009 2:40p Main Office Aly Crews M.D. 78056 401.9 719.46 Office Visit 01/07/2009 1:00p Main Office Mindy Arteaga 17729 466.0 M.DCynthia Office Visit 09/07/2008 11:20a Main Office Aly Crews M.D. 58794 719.66 Office Visit 04/20/2008 3:10p Main Office Aly Crews M.D. 25278 719.42 Office Visit 01/07/2008 3:00p [facility] Aly Crews M.D. 30654 880.02 726.31 Office Visit 03/08/2007 11:20a [place] [address] 466.0 462 Office Visit 11/06/2006 4:15p [facility] Matthew Chavez 76220 462 Office Visit 06/25/2006 2:15p Main Office Matthew Chavez 58663 054.6 Office Visit 03/06/2006 3:00p [facility] Aly Crews M.D. 39072 928.20 Office Visit 01/02/2006 4:10p [facility] Aly Crews M.D. 91887 465.9 493.90 Office Visit 11/15/2005 6:00p Main Office Aly Crews M.D. 75171 401.9 Office Visit 08/21/2005 1:00p Main Office Aly Crews M.D. 72095 401.9 Office Visit 06/19/2005 2:40p Main Office Aly Crews M.D. 02868 786.50 Office Visit 12/02/2004 2:15p Main Office KSENIA MoralesP 75586 473.9 Office Visit 09/12/2004 3:15p Main Office SHAILESH Morales 19493 487.1 Office Visit 08/17/2004 3:10p Main Office Aly Crews M.D. 34198 723.1 719.41 Office Visit 04/18/2004 9:10a Main Office Aly Crews M.D. 45734 716.90 401.9 Office Visit 11/24/2003 9:10a [facility] Aly Crews M.D. 59782 729.5 401.9 Office Visit 09/21/2003 9:20a Main Office Aly Crews M.D. 54974 959.2 401.9 Office Visit 04/13/2003 8:40a Main Office Aly Crews M.D. 93926 V70.3 V02.3 Office Visit 04/07/2003 10:30a [facility] Janice HilMatthew ruiz 57741 401.9 465.9 466.0 Office Visit 12/30/2002 4:15p Main Office Nilda Matthew Frederick 77705 949.0 Office Visit 12/06/2002 11:00a Main Office Collin Wilson M.D. 53984 461.0 465.9 Office Visit 09/19/2002 3:10p Main Office Aly Crews M.D. 51279 530.11 Office Visit 06/23/2002 8:00p Main Office SWETHA Hunt 83129 Office Visit 05/15/2002 7:00p Main Office KSENIA MoralesP 72396 Office Visit 02/07/2002 1:40p [facility] Aly Crews M.D. 28539 Office Visit 12/17/2001 1:20p [facility] Aly Crews M.D. 58156 Office Visit 12/04/2001 1:00p [facility] Orestes Mcdonald M.D. 96604 Office Visit 08/22/2001 3:00p Main Office Matthew Saleem 29510 Office Visit 06/19/2001 4:10p Main Office Aly Crews M.D. 11626 Office Visit 01/21/2001 11:20a Main Office Aly Crews M.D. 90558 Office Visit 11/10/2000 12:20p Main Office Orestes Mcdonald M.D. 52487 Office Visit 10/15/2000 10:20a [facility] Victor Manuel Kay M.D. 33425 Office Visit 08/08/2000 7:30p Main Office Matthew Chavez 73114 Plan of Care No Information Available
--- OUTSIDE RECORDS SUMMARY | 2017-12-05 13:32 | XMS REPORT ---
:1955 External Reference #:[id number] Author Organization Setup Address [address] [address] Phone [phone] Care Team Providers Name Role Phone Aly Crews MD Primary Care Physician Unavailable Payers Type Date Identification Numbers Payment Provider Subscriber Commercial Policy Number: [id number] [employer] Sofia Starr PayID: [id number] [address] [address] [place] [address] Problems Description No Information Family History Date Family Member(s) Problem(s) Comments Father No significant health problems Father due to Motor () Vehicle Accident Mother Arterioslerotic cardiovascular disease : (1998) Mother due to CHF Mother Diabetes Mother Congestive Heart Failure (CHF) Mother Hypertension Siblings 11 2 siblings passed. no significant heart problems Social History Type Date Description Comments Marital Status Lives With Son Occupation Youth counseling program leader Cigarette Use Never Smoked Cigarettes ETOH Use Denies alcohol use Smoking Patient has never smoked Recreational Drug Use Never Used Drugs Daily Caffeine Consumes on average 1 cup of Very rarely if needing to regular coffee per day drive Daily Caffeine Consumes on average 1 soda per If needed while driving day Exercise Type/Frequency Exercises sporadically Allergies, Adverse Reactions, Alerts Date Description Reaction Status Severity Comments 10/04/2017 Sulfa Antibiotics active 10/04/2017 Ciprofloxacin active 10/04/2017 Nitrofurantoin active 10/04/2017 Milk-related Compounds active 10/04/2017 Eggs or Egg-derived Products active 10/04/2017 Yeast-related Products active Medications Medication Date Status Form Strength Qnty SIG Indications Ordering Provider Fany 11/09 Active Tablets ER 30mg 30tab one po 24HR s qd Kisha Gibson M.D. K-Tab 10/12 Active Tablets ER 20Meq 30tab 1 by s mouth S. once a Arthur llanos M.D. Norvasc 10/04 Active Tablets 5mg 30tab one po Shadia s qd Kisha Gibson M.D. Aspirin Active Tablets DR 81mg 1 by Unknown /0000 mouth every day Hydrochlorothiazide Active Tablets 50mg 1 by Unknown /0000 mouth every day Nasonex Active Suspension 50mcg/Act use two Unknown /0000 sprays in each nostril once daily prn Propranolol HCL Active Tablets 40mg take 1 Unknown /0000 tablet every morning and take 2 tablets at bedtime Pantoprazole Sodium Active Solution 40mg 1 by Unknown /0000 Rec mouth every day Multivitamin Adult Active Tablets 1 by Unknown /0000 mouth every day prn Grace-C Active Tablets 1000mg prn Unknown /0000 Vitamin B12 Active Tablets 50mcg 1 by Unknown /0000 mouth every day prn Atorvastatin Active Tablets 80mg 1 by Unknown Calcium /0000 mouth every day Nitrostat Active Tablets Sub 0.4mg one sl Unknown /0000 q5min up to 3 doses as needed Brilinta Active Tablets 90mg 1 tab by Unknown /0000 mouth twice a day Ventolin HFA Active Aerosol 108(90Bas 2 puffs Unknown /0000 e) by mouth mcg/Act four times a day as needed Norvasc Hx Tablets 2.5mg 1 by Unknown /0000 mouth - every Proventil HFA Hx Aerosol 108(90Bas inhale Unknown /0000 e) two - mcg/Act puffs by 10/09 four times a day as needed Naproxen Hx Tablets 500mg 1 tablet Unknown /0000 with - food by 10/16 twice a day Vital Signs Date Vital Result Comment 11/09/2017 Height 59.5 inches 4'11.50" Weight 218.75 lb w/o shoes Heart Rate 68 /min BP Systolic Sitting 126 mmHg Ra lrg cuff BP Diastolic Sitting 82 mmHg Ra lrg cuff BMI (Body Mass Index) 43.4 kg/m2 Ejection Fraction 50%-55% echo 10/15/17 10/23/2017 Height 59.5 inches 4'11.50" Weight 216.00 lb Heart Rate 74 /min BP Systolic Sitting 136 mmHg Lue large cuff BP Diastolic Sitting 88 mmHg Lue large cuff BP Systolic Standing 124 mmHg BP Diastolic Standing 88 mmHg Respiratory Rate 18 /min BMI (Body Mass Index) 42.9 kg/m2 Ejection Fraction 50-55% 10/15/17 10/04/2017 Height 59.5 inches 4'11.50" Weight 220.50 lb w/ shoes Heart Rate 66 /min BP Systolic Sitting 132 mmHg LA lrg cuff BP Diastolic Sitting 88 mmHg LA lrg cuff BMI (Body Mass Index) 43.8 kg/m2 Results Test Date Test Result H/L Range Note Cath Panel 10/12/2017 Partial Thrombo Time PTT 33.3 seconds 26.0-36.3 CBC Auto Diff 10/12/2017 White Blood Count 7.5 10^3/uL 3.5-10.8 Red Blood Count 4.76 10^6/uL 4.0-5.4 Hemoglobin 13.3 g/dL 12.0-16.0 Hematocrit 40 % 35-47 Mean Corpuscular Volume 84 fL 80-97 Mean Corpuscular Hemoglobin 28 pg 27-31 Mean Corpuscular HGB Conc 33 g/dL 31-36 Red Cell Distribution Width 15 % 10.5-15 Platelet Count 304 10^3/uL 150-450 Mean Platelet Volume 9 um3 7.4-10.4 Abs Neutrophils 3.3 10^3/uL 1.5-7.7 Abs Lymphocytes 3.2 10^3/uL 1.0-4.8 Abs Monocytes 0.6 10^3/uL 0-0.8 Abs Eosinophils 0.4 10^3/uL 0-0.6 Abs Basophils 0.1 10^3/uL 0-0.2 Abs Nucleated RBC 0.01 10^3/uL Granulocyte % 43.4 % 38-83 Lymphocyte % 42.7 % 25-47 Monocyte % 7.7 % 1-9 Eosinophil % 5.1 % 0-6 Basophil % 1.1 % 0-2 Nucleated Red Blood Cells % 0.1 Inr/Protime 10/12/2017 Inr 0.90 0.77-1.02 1 Basic Metabolic Panel 10/12/2017 Sodium 140 mmol/L 133-145 Potassium 3.3 mmol/L Low 3.5-5.0 Chloride 102 mmol/L 101-111 Co2 Carbon Dioxide 30 mmol/L 22-32 Anion Gap 8 mmol/L 2-11 Glucose 87 mg/dL 70-100 Blood Urea Nitrogen 16 mg/dL 6-24 Creatinine 0.93 mg/dL 0.51-0.95 BUN/Creatinine Ratio 17.2 8-20 Calcium 9.3 mg/dL 8.6-10.3 Egfr Non- 61.5 >60 Egfr 79.1 >60 2 1 Please note the change in INR reference range effective 17. 2 Because ethnic data is not always readily [...] 15-29 5 Kidney failure <15 (or dialysis) Procedures Date CPT Code Description Status 11/09/2017 80349 EKG Tracing & Interpretation Completed 10/23/2017 76695 EKG Tracing & Interpretation Completed 10/23/2017 40288 EKG Tracing & Interpretation Completed 10/17/2017 54433 Left Heart Cath. Incl S/I Coronaries, Angio S/I V Gram Completed If Done 10/17/2017 93662 Percutaneous Transcatheter Placement Of Intracoronary Completed Stent 10/15/2017 08118 ECHO Transthorasic Realtime 2D W Doppler & Color Completed Flow Hosp 10/04/2017 49073 EKG Tracing & Interpretation Completed 09/12/2017 98789 Treadmill Interp/Report Only Completed 09/12/2017 21294 Stress Test Supervsn W/Out I/R Completed Encounters Type Date Location Provider CPT E/M Dx Office Visit 11/09/2017 4:40p [facility] Heather S. [address]1477 I25.10 Felicia Gibson I10 I21.4 E78.5 E66.9 R07.9 Office Visit 10/23/2017 1:30p [facility] OLMAN Teixeira 90239 I25.10 I10 I21.4 E78.5 Office Visit 10/19/2017 11:54a [facility] Kaila Baird, 28561 I25.119 [facility] [place], [facility] Office Visit 10/18/2017 11:54a [facility] Kaila Baird, [address]4984 I25.119 [facility] [place], [facility] Office Visit 10/04/2017 1:40p [facility] Heather Beard [address] I10 Felicia Gibson R94.31 R06.02 R07.9 R94.39 E66.9 Plan of Care Future Appointment(s):01/09/2018 3:20 pm - Heather Gibson M.D. at [facility]12/19/2017 8:30 am - Heather Gibson M.D. at [facility]12/03/2017 3:00 pm - [facility]ca ECHO Schedule at [facility]03/2018 - Heather Gibson M.D.I25.10 Athscl heart disease of [place] coronary artery w/o ang pctrsFollow up:one month to discuss all mzczcT21 Essential (primary) yazjguhnhykjY67.4 Non-St elevation (Nstemi) myocardial jchbpxyoilL41.5 Hyperlipidemia, mqfixaovodsQ87.9 Obesity, beyylsoyhygF87.9 Chest pain, unspecifiedNew Orders:Stress Test, Pharmacologic Nuclear (Lexiscan)
[2017-12-05 14:08] VITALS: BP 128/83
[2017-12-05] MEDS ORDERED: Acetaminophen TAB* 325 MG PO ONE (15:03)
--- NOTE | 2017-12-05 15:03 | UC ---
Minor Trauma HPI - HPI Summary HPI Summary: 62 yo [place] ice and fell down 3-5 steps occurred yesterday no loc c/o mild LUCERO c/o mod left lat neck pain c/o mild right elbow and forearm pain c/o mod right wrist pain c/o mod left ankle and knee pain c/o mod thoracic back pain no cp or sob - History of Current Complaint Chief Complaint: UCLowerExtremity Stated Complaint: ARM, NECK, AND BACK INJURY Time Seen by Provider: 12/05/17 14:54 Hx Obtained From: Patient Onset/Duration: Sudden Onset, Lasting Hours Onset Of Pain: Immediate Severity Initially: Severe Severity Currently: Moderate Pain Intensity: 8 Pain Scale Used: 0-10 Numeric Mechanism Of Injury: Fall From A Standing Position Aggravating Factor(s): Ambulation, Movement, Weight Bearing Alleviating Factor(s): Rest Associated Signs And Symptoms: Positive: Ecchymosis, Swelling - Allergies/Home Medications Allergies/Adverse Reactions: Allergies Allergy/AdvReac Type Severity Reaction Status Date / Time MS Ciprofloxacin [From Cipro] Allergy Intermediate skin red Verified 12/09/16 13 :10 MS Nitrofurantoin Allergy Intermediate skin red Verified 12/09/16 13:10 [From Macrodantin] MS Sulfa Drugs [Sulfa Drugs] Allergy Intermediate skin red Verified 12/09/16 13: 10 eggs,milk Allergy Severe Diarrhea Uncoded 12/09/16 13:10 Home Medications: Home Medications Isosorbide Mononitrate ER TAB* [Imdur ER TAB*] 30 mg PO DAILY 12/05/17 [History Confirmed 12/05/17] PMH/Surg Hx/FS Hx/Imm Hx Previously Healthy: Yes Endocrine History: Dyslipidemia Cardiovascular History: Cardiac Disease, Hypertension Respiratory History: Asthma - Surgical History Surgical History: Yes Surgery Procedure, Year, and Place: C-sections x 5, cardiac cath with three stents - Family History Known Family History: Positive: Hypertension - Social History Alcohol Use: None Substance Use Type: None Smoking Status (MU): Never Smoked Tobacco Have You Smoked in the Last Year: No - Immunization History Most Recent Influenza Vaccination: never Most Recent Pneumonia Vaccination: unknown Review of Systems Constitutional: Negative Skin: Bruising Eyes: Negative ENT: Negative Respiratory: Negative Cardiovascular: Negative Gastrointestinal: Negative Genitourinary: Negative Motor: Negative Neurovascular: Negative Musculoskeletal: Arthralgia, Myalgia Neurological: Negative Psychological: Negative Is Patient Immunocompromised?: No All Other Systems Reviewed And Are Negative: Yes Physical Exam Triage Information Reviewed: Yes Appearance: Well-Appearing, No Pain Distress, Well-Nourished Vital Signs: Initial Vital Signs Temp 97.2 F 12/05/17 14:00 Pulse 75 12/05/17 14:00 Resp 17 12/05/17 14:00 BP 128/83 12/05/17 14:00 Pulse Ox 75 12/05/17 14:00 Vital Signs Reviewed: Yes Eyes: Positive: Conjunctiva Clear ENT: Positive: Hearing grossly normal. Negative: Nasal congestion, Nasal drainage, Trismus, Muffled voice, Dental tenderness Neck: Positive: Supple, Tenderness @ - left trapezius/no midline james pain Respiratory: Positive: Chest non-tender, Lungs clear, Normal breath sounds, No respiratory distress, No accessory muscle use Cardiovascular: Positive: RRR, No Murmur Abdomen Description: Positive: Nontender Musculoskeletal: Positive: Other: - see image Neurological: Positive: Alert Psychological Exam: Normal Skin Exam: Other - see image Diagnostics - Radiology No standard instances Xray Interpretation: No Acute Changes - STS only Left ankle DJD only left knee no fx pelvis DDD thoracolumbar spine Radiology Interpretation Completed By: Radiologist Minor Trauma Course/Dx - Course Course Of Treatment: right wrist- ? avulsion fx triq - Differential Dx/Diagnosis Provider Diagnoses: 1.fall. 2. possible avulsion fx dorsum of right carpals. 3. contusions of right forearm/elbow/scalp. 4. left trapzius strain. 5. thoraco lumbar strain. 6 left michelle pelvis contusion. 7 left knee contusion. 8 left ankle sprain Discharge - Discharge Plan Condition: Stable Disposition: HOME Patient Education Materials: Ankle Sprain (ED), Contusion in Adults (ED), Degenerative Disc Disease (ED), Avulsion Fracture (ED) Referrals: Enid Pacheco MD [Medical Doctor] - Additional Instructions: you may have a tiny chip/avulsion fracture of one of the small bones in your l= right wrist wrist splint CAM boot walker tylenol Images Head: 1 - tender/no hematoma 2 - tender Front/Back of Body, Lg (Scott): 1 - swollen/ecchymosis 2 - tender distal radius 3 - tender 4 - tender 5 - tender/swollen, ?effusion 6 - tender LM
--- NOTE | 2017-12-05 15:46 | RAD ---
INDICATION: Right wrist injury. TECHNIQUE: 4 views of the right wrist were obtained. FINDINGS: There is diffuse soft tissue swelling. The bones are in normal alignment. There is a small bony density adjacent to the distal aspect of the triquetrum bone possibly representing a fracture fragment. IMPRESSION: DIFFUSE SOFT TISSUE SWELLING. POSSIBLE FRACTURE OF THE DISTAL TRIQUETRUM BONE.
--- NOTE | 2017-12-05 15:47 | RAD ---
INDICATION: Left ankle injury. TECHNIQUE: 3 views of the left ankle were obtained. FINDINGS: There is diffuse soft tissue swelling. The bones are normal alignment. No fracture is seen. Joint spaces appear maintained. IMPRESSION: SOFT TISSUE SWELLING, NO FRACTURE IS SEEN.
--- NOTE | 2017-12-05 15:48 | RAD ---
INDICATION: Left knee injury. TECHNIQUE: 4 views of the left knee were obtained. FINDINGS: The bones are in normal alignment. No joint effusion or fracture is seen. There is moderate osteoarthritic change in the medial compartment. IMPRESSION: NO EVIDENCE FOR FRACTURE.
--- NOTE | 2017-12-05 15:50 | RAD ---
INDICATION: Pelvic injury. COMPARISON: Comparison is made with a prior study from February 25, 2015. TECHNIQUE: An AP view of the pelvis was obtained. FINDINGS: The bones are in normal alignment. No fracture is seen. There is calcification adjacent to the left greater trochanter which is unchanged. There is mild to moderate bilateral osteoarthritic change in the hips. IMPRESSION: NO EVIDENCE FOR FRACTURE, IF THE PATIENT'S SYMPTOMS PERSIST RECOMMEND FOLLOW-UP IMAGING.
--- NOTE | 2017-12-05 15:53 | RAD ---
INDICATION: Back injury. COMPARISON: Comparison is made with a prior x-ray study of the dorsal spine from December 28, 2003 and a prior x-ray study of the lumbar spine from February 25, 2015. TECHNIQUE: AP and lateral films of the spine were obtained centered at the dorsal lumbar junction. FINDINGS: There is a mild lumbar scoliosis convex toward the left side. The vertebra are otherwise in normal alignment. No fracture is seen. There is moderate degenerative disc disease in the mid and lower dorsal spine IMPRESSION: NO EVIDENCE FOR FRACTURE.
== END 2017-12-05 16:30 | disposition home or self-care (01) ==
LOC: UCEAST 13:25
DX: S50.11XA Contusion of right forearm, initial encounter (principal); S46.812A Strain of other muscles, fascia and tendons at shoulder and upper arm level, left arm, initial encounter; S50.01XA Contusion of right elbow, initial encounter; S29.012A Strain of muscle and tendon of back wall of thorax, initial encounter; S30.0XXA Contusion of lower back and pelvis, initial encounter; S80.02XA Contusion of left knee, initial encounter; S93.402A Sprain of unspecified ligament of left ankle, initial encounter; I10 Essential (primary) hypertension; E78.5 Hyperlipidemia, unspecified; J45.909 Unspecified asthma, uncomplicated; W00.1XXA Fall from stairs and steps due to ice and snow, initial encounter; Y92.240 Courthouse as the place of occurrence of the external cause
CPT/HCPCS: 72080; 72170; 99214; A9270-GY; G0463

== ENCOUNTER → 2018-01-21 10:15 | Day surgery (SDC) | payer BC ==
[~2018-01-21 10:15] MED LIST: Adenosine* 3 MG/ML VIAL ONE; Diazepam TAB(*) 5 MG ONE; Heparin 2 UNITS/ML IVPREMIX* 2,000 ML IV ONE; Heparin(*) 1000 UNIT/ML 10 ML VIAL CATH LAB IV ONE; Iohexol 350 (CONTRAST) 200 ML MDV IV ONE; Lidocaine 1% INJ* 10 MG/ML 30 ML SDV ONE; Midazolam* 1 MG/ML 10 ML VIAL (10 MG) ONE; VERAPAMIL 2.5 MG/ML 2 ML VIAL ** 5 mg/2 ml ONE; diPHENhydraMINE PO* 25 MG ONE; fentaNYL* 50 MCG/ML 2 ML VIAL (100 MCG VIAL) ONE; nitroGLYCERIN DRIP* 25,000 MCG/250 ML BTL ONE
[2018-01-21] MEDS: NS 0.9% 1000 ML* 1,000 ML IV SCH ×2 (11:00→15:27)
[2018-01-21 16:20] VITALS: BP 109/69
--- NOTE | 2018-01-22 12:07 | CATH ---
CC: Dr. Cresw; Dr. Gbison CATH REPORT: DATE OF PROCEDURE: 01/21/18 PRIMARY CARE PHYSICIAN: Dr. Crews. ASSOCIATE ACCOUNT MANAGER: Dr. Gibson. PROCEDURE: Right radial artery access, bilateral selective coronary cineangiography, FFR evaluation diagonal branch, FFR evaluation LAD. HISTORY: A 62-year-old -[place] woman with 3 stents placed in the LAD on 10/17/17 with 2.25 x 12, 2.5 x 28, and 2.5 x 32 drug-eluting stents distal to proximal. She now returns with 3 weeks of left upper precordial chest discomfort at rest as well as with exertion, more often with rest than with activity, usually relieved with nitroglycerin. Stress imaging again showed an anteroapical defect. Her pain pattern has been somewhat atypical in that she has had prolonged episodes. PROCEDURE ACCESS: Right radial artery sheath 6F slender. MEDICATIONS: 1. Subcu lidocaine. 2. IV Versed. 3. IV fentanyl. 4. Nitroglycerin 300 mcg. 5. Verapamil 3 mg. 6. Heparin 3000 units IA. 7. IC nitroglycerin 100 mcg. 8. Adenosine 100, 150 mcg diagonal branch FFR, and adenosine 100 mcg LAD FFR. DIAGNOSTIC CATHETER: 5F TIG4. FFR wire [facility]. Lucho HEMODYNAMICS: Initial BP 120/67, final BP 107/62. FFR values: With 100 and 150 mcg of IC adenosine respectively 0.87, 0.88 across diagonal ostium. FFR value LAD 0.94. ANGIOGRAPHY: The left main is large, has no stenosis. LAD: The LAD is moderate, the previously placed mid LAD stents are patent. LAD has AZEB-2 flow on the initial injection with subsequent improvement without intervention. The LAD has a small first diagonal, moderate second diagonal which is jailed by the stented segment, the ostium of that diagonal has a 60% stenosis. The LAD just beyond the second diagonal has mild intimal hyperplasia with at most 20% or less stenosis, was evaluated with FFR. The LAD ends past the apex. Circumflex: The circumflex is large, not dominant with a large marginal, moderate posterolateral and ends with a small posterolateral, has no stenosis. RCA: The RCA is large, dominant with 30% proximal stenosis, a large PDA, a small posterolateral. The RCA has no significant stenosis. After FFR evaluation of the diagonal and LAD, anatomy is unchanged. CONCLUSION: 1. No significant stenosis/restenosis. 2. Nonischemic FFR jailed diagonal branch ostium, as well as mid LAD. 3. Successful right radial artery access. 4. Consider noncardiac causes of chest discomfort. [id number]/CPS #: [id number] MTDD
== END | disposition home or self-care (01) ==
LOC: CHICATH 10:15
PROVIDERS: ATTEND Internal Medicine Cardiovascular Disease
DX: I25.10 Atherosclerotic heart disease of native coronary artery without angina pectoris (principal); I10 Essential (primary) hypertension; K21.9 Gastro-esophageal reflux disease without esophagitis; J45.909 Unspecified asthma, uncomplicated; E78.5 Hyperlipidemia, unspecified; Z88.1 Allergy status to other antibiotic agents; Z91.012 Allergy to eggs; Z88.2 Allergy status to sulfonamides; Z91.018 Allergy to other foods; Z82.49 Family history of ischemic heart disease and other diseases of the circulatory system; Z79.82 Long term (current) use of aspirin
CPT/HCPCS: 93454; 99156; 99157; A9270-GY; C1769; J0153; J1644; J2250; J3010

== ENCOUNTER 2019-10-20 14:51 | Emergency (ER) | payer BC ==
--- OUTSIDE RECORDS SUMMARY | 2019-10-20 14:56 | XMS REPORT | Continuity of Care Document ---
:1955 External Reference #:[id number] Author Name Heather Gibson M.D. 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 Now walking and stretching. (on hold until cleared from ortho) Allergies, Adverse Reactions, Alerts Active Allergies Reaction Severity Comments Date Sulfa Antibiotics 10/04/2017 Ciprofloxacin 10/04/2017 Nitrofurantoin, Macrocrystals / Nitrofurantoin, 10/04/2017 Monohydrate Milk-related Compounds 10/04/2017 Eggs or Egg-derived Products 10/04/2017 Yeast-related Products 10/04/2017 Medications Active Medications SIG Qnty Indications Ordering Date Provider Methotrexate Take 6 Tablets By 30tabs Aly Zapien, 2.5mg Tablets Mouth Once Day A M.D. 8 Week Folic Acid take one 90tabs Aly Zapien, 1mg Tablets capsule/tablet M.D. 8 daily by mouth Foot Smoother Dual please provide 2units M60.9 Aly Zapien, Surface comfortable shoe M.D. 8 Misc insert to help provide stability and improve leg length deformity from severe left knee OA Amlodipine Besylate 1/2 by mouth 45tabs Qutaybeh S. 10mg every day Maghaydah, 8 Tablets M.D. K-Tab 1 by mouth twice 180tabs Qutaybeh S. 20Meq Tablets ER every day Maghaydah, [address] 1 tab by mouth Unknown 500mg Tablets DR once at night 0 Aspirin 1 by mouth every Unknown 81mg Chewtabs day 0 Penicillin V Potassium 1 by mouth four Unknown 500mg times a day (3 0 Tablets more days as of ) Acetaminophen 2 tablets by Unknown 500mg Tablets mouth daily as 0 needed Ventolin HFA 2 puffs by mouth Unknown 108(90Base) four times a day 0 mcg/Act Aerosol as needed Nitrostat one sl q5min up 25tabs Qutaybeh S. 0.4mg Tablets Sub to 3 doses as Maghaydah, 0 needed M.D. Atorvastatin Calcium 1 by mouth every 90tabs Qutaybeh S. 80mg day Maghaydah, 0 Tablets M.D. Vitamin B12 1 by mouth every Unknown 50mcg Tablets day prn 0 Multivitamin Adult 1 by mouth every Unknown Tablets day prn 0 Pantoprazole Sodium 1 by mouth every Unknown 40mg day 0 Solution Rec Propranolol HCL take 1 tablet Unknown 40mg Tablets every morning and 0 take 2 tablets at bedtime Nasonex use two sprays in Unknown 50mcg/Act Suspension each nostril once 0 daily prn Hydrochlorothiazide 1/2 by mouth Unknown 50mg every day 0 Tablets Immunizations Description No Information Available Vital Signs Date Vital Result Comment 09/11/2019 2:16pm Height 59 inches 4'11" Weight 213.00 lb no shoes Heart Rate 62 /min apical,regular BP Systolic Sitting 114 mmHg LA, reg cuff BP Diastolic Sitting 76 mmHg LA, reg cuff BMI (Body Mass Index) 43.0 kg/m2 Ejection Fraction 50-55% Echo 12/03/17 05/21/2019 2:27pm Height 59 inches 4'11" Weight 217.38 lb Heart Rate 64 /min BP Systolic Sitting 124 mmHg BP Diastolic Sitting 80 mmHg Pain Level 3 O2 % BldC Oximetry 97 % BMI (Body Mass Index) 43.9 kg/m2 Results Test Acquired Date Facility Test Result H/L Range Note Laboratory test 05/21/2019 [facility] Erythrocyte Sed 16 mm/Hr Normal 0-[address] [place] [address] [phone] C Reactive Protein 5.25 mg/L Normal <8.01 CBC Auto 05/21/2019 [facility] White Blood 7.8 10^3/uL Normal 3.5-10.[address] [place] [address] [phone] Red Blood Count 3.97 10^6/uL Normal 3.70-4.87 Hemoglobin 11.3 g/dL Low 12.0-16.0 Hematocrit 34 % Low 35-47 Mean Corpuscular Volume 87 fL Normal 80-97 Mean Corpuscular Hemoglobin 29 pg Normal 27-31 Mean Corpuscular HGB Conc 33 g/dL Normal 31-36 Red Cell Distribution Width 17 % High 10-15 Platelet Count 263 10^3/uL Normal 150-450 Mean Platelet Volume 9.0 fL Normal 7.4-10.4 Abs Neutrophils 3.8 10^3/uL Normal 1.5-7.7 Abs Lymphocytes 2.9 10^3/uL Normal 1.0-4.8 Abs Monocytes 0.6 10^3/uL Normal 0-0.8 Abs Eosinophils 0.3 10^3/uL Normal 0-0.6 Abs Basophils 0.1 10^3/uL Normal 0-0.2 Abs Nucleated RBC 0.0 10^3/uL Granulocyte % 49.1 % Lymphocyte % 37.8 % Monocyte % 8.2 % Eosinophil % 4.2 % Basophil % 0.7 % Nucleated Red Blood Cells % 0.1 Comp Metabolic 05/21/2019 [facility] Sodium 143 mmol/L Normal 135-[address] [place] [address] [phone] Potassium 3.7 mmol/L Normal 3.5-5.0 Chloride 110 mmol/L Normal 101-111 Co2 Carbon Dioxide 26 mmol/L Normal 22-32 Anion Gap 7 mmol/L Normal 2-11 Calcium 8.9 mg/dL Normal 8.6-10.3 Albumin 3.5 g/dL Normal 3.2-5.2 Total Bilirubin 0.50 mg/dL Normal 0.2-1.0 Glucose 108 mg/dL High 70-100 Blood Urea Nitrogen 14 mg/dL Normal 6-24 Creatinine 0.83 mg/dL Normal 0.51-0.95 BUN/Creatinine Ratio 16.9 Normal 8-20 Total Protein 6.5 g/dL Normal 6.4-8.9 Globulin 3.0 g/dL Normal 2-4 Albumin/Globulin Ratio 1.2 Normal 1-3 Alkaline Phosphatase 90 U/L Normal 34-104 Alt 14 U/L Normal 7-52 Ast 15 U/L Normal 13-39 Egfr Non- 69.9 >60 Egfr 84.6 >60 1 1 Because ethnic data is not always readily [...] Kidney failure <15 (or dialysis) Procedures Date Code Description Status 09/11/2019 87208 EKG Tracing & Interpretation Completed Medical Devices Description No Information Available Encounters Type Date Location Provider Dx Diagnosis Office Visit 05/21/2019 Rheumatology Aly Zapien, M05.79 Brady arthritis w 2:[facility]p [facility] factor mult site w/o org/sys involv 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 Maghaydah, M.D. 09/11/2019 E78.5 Hyperlipidemia, unspecified Heather Gibson M.D. 09/11/2019 I25.10 Atherosclerotic heart disease of Heather Gibson M.D. [place] coronary artery with 09/11/2019 E66.9 Obesity, unspecified Heather Gibson M.D. 09/11/2019 Z98.61 Coronary angioplasty status Heather Gibson M.D. 05/21/2019 M05.79 Rheumatoid arthritis with rheumatoid Aly Zapien M.D. 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 05/21/2019 M17.9 Osteoarthritis of knee, unspecified Aly Zapien M.D. 05/21/2019 M25.552 Pain in left hip Aly Zapien M.D. Plan of Treatment 09/11/2019 - Heather Gibson M.D.I10 Essential (primary) qtadimodnggwC37.5 Hyperlipidemia, zooxclbaoafD47.10 Atherosclerotic heart disease of [place] coronary artery withFollow up:8 months ovE66.9 Obesity, vurfbrdmjweV86.61 Coronary angioplasty status Functional Status Description No Information Available Mental Status Description No Information Available Referrals Description No Information Available
--- OUTSIDE RECORDS SUMMARY | 2019-10-20 14:56 | XMS REPORT | Continuity of Care Document ---
:1955 External Reference #:[id number] Author Name Aly Zapien M.D. (transmitted by agent of provider Aleisha Ayala) Address [address] [place] [address] Care Team Providers Name Role Phone Aly Crews MD - Family Medicine Care Team Information Straddle Bug Operator [phone] Problems Active Problems Provider Date Angina pectoris Kaila Baird MD, [facility], [facility] Onset: 01/17/2018 Social History Type Date Description Comments Sex Unknown Tobacco Use Start: Unknown Never Smoked Cigarettes Smoking Status Reviewed: 09/24/19 Never Smoked Cigarettes ETOH Use Denies alcohol [...] Medications SIG Qnty Indications Ordering Date Provider Wrist Splint use nightly with 2units G56.01 Aly Zapien, Misc thumb stabilizer M.D. 9 to help with carpal tunnel features for the right wrist g56.01 Methotrexate Take 6 Tablets By 30tabs Aly [...] mouth every Unknown 81mg Chewtabs day 0 Ventolin HFA 2 puffs by mouth Unknown [...] Available Vital Signs Date Vital Result Comment 09/24/2019 9:46am Height 59 inches 4'11" Weight 214.00 lb Heart Rate 60 /min BP Systolic Sitting 116 mmHg BP Diastolic Sitting 72 mmHg Respiratory Rate 16 /min Body Temperature 97.7 F Pain Level 3 mostly in the left thumb, RT hip, LT knee BMI (Body Mass Index) 43.2 kg/m2 09/11/2019 2:16pm Height 59 inches 4'11" Weight 213.00 lb no shoes Heart Rate 62 /min apical,regular BP Systolic Sitting 114 mmHg LA, reg cuff BP Diastolic Sitting 76 mmHg LA, reg cuff BMI (Body Mass Index) 43.0 kg/m2 Ejection Fraction 50-55% Echo 12/03/17 Results Test Acquired Date Facility Test Result H/L Range Note Laboratory test 09/24/2019 [facility] [place] [facility] Esr Sedimentation <pending> finding Rate CRP C-Reactive Protein <pending> CBC W/Auto Diff 09/24/2019 [facility] [place] White Blood Count <pending> RBC Red Blood Count <pending> Hemoglobin <pending> Hematocrit <pending> MCV (Corpuscular Volume) <pending> MCH (Corpuscular Hemoglobin) <pending> MCHC (Corpuscular Hemog Conc) <pending> RDW <pending> Platelet Count <pending> MPV <pending> Neutrophils <pending> Bands <pending> Lymphocytes <pending> Monocytes <pending> Eosinophils <pending> Basophils <pending> Absolute Basophil <pending> Absolute Eosinophil <pending> Absolute Lymphocyte <pending> Absolute Monocytes <pending> Absolute Neutrophils <pending> CMP Panel 09/24/2019 [facility] [place] Albumin <pending> Alt - SGPT <pending> Calcium <pending> Carbon Dioxide <pending> Chloride <pending> Creatinine <pending> Glucose Serum <pending> Alkaline Phosphatase <pending> Potassium <pending> Total Protein <pending> Sodium <pending> Ast - Sgot <pending> BUN - Urea Nitrogen <pending> Laboratory test 05/21/2019 [facility] Erythrocyte Sed 16 mm/Hr Normal 0-[address] [place] [address] [phone] C Reactive Protein 5.25 mg/L Normal <8.01 CBC Auto 05/21/2019 [facility] White Blood 7.8 10^3/uL Normal 3.5-10.[address] [place] [address] [phone] Red Blood Count 3.97 10^6/uL Normal 3.70-4.87 [...] Blood Cells % 0.1 Comp Metabolic 05/21/2019 [facility] Sodium 143 mmol/L Normal 135-145 Panel [address] [place] [address] [phone] Potassium 3.7 mmol/L Normal 3.5-5.0 Chloride 110 [...] dialysis) Procedures Date Code Description Status 09/11/2019 30420 EKG Tracing & Interpretation Completed Medical Devices Description No Information Available Encounters Type Date Location Provider Dx Diagnosis Office Visit 09/11/2019 [facility] Heather Daley. I10 Essential ( primary) 2:40p Felicia Gibson hypertension E78.5 Hyperlipidemia, unspecified I25.10 [facility] [place] coronary artery w/o ang pctrs E66.9 Obesity, unspecified Z98.61 Coronary angioplasty status Office Visit 05/21/2019 2:00p Rheumatology iAsha Devi5.79 [facility] Felicai [facility] site w/o org/sys involv Z79.899 Other intermediate accountant (current) drug therapy M17.9 Osteoarthritis of knee, unspecified M25.552 Pain in left hip Assessments Date Code Description Provider 09/24/2019 M05.79 Rheumatoid arthritis with rheumatoid Aly Zapien M.D. [facility] site 09/24/2019 Z79.899 Other intermediate accountant (current) drug therapy Aly Zapien M.D. 09/24/2019 M17.9 Osteoarthritis of knee, unspecified Aly Zapien M.D. 09/24/2019 M25.551 Pain in right hip Aly Zapien M.D. 09/24/2019 G56.01 Carpal tunnel syndrome, right upper Aly Zapien M.D. limb 09/11/2019 I10 Essential (primary) hypertension Heather Gibson M.D. 09/11/2019 E78.5 Hyperlipidemia, unspecified Heather Gibson M.D. 09/11/2019 I25.10 Atherosclerotic heart disease of Heather Gibson M.D. [place] coronary artery with 09/11/2019 E66.9 Obesity, unspecified Heather Gibson M.D. 09/11/2019 Z98.61 Coronary angioplasty status Heather Gibson M.D. 05/21/2019 M05.79 Rheumatoid arthritis with rheumatoid Aly Zapien M.D. factor of multiple site 05/21/2019 Z79.899 Other group home (current) drug therapy Aly Zapien M.D. 05/21/2019 M17.9 Osteoarthritis of knee, unspecified Aly Zapien M.D. 05/21/2019 M25.552 Pain in left hip Aly Zapien M.D. Plan of Treatment Future Appointment(s):12/25/2019 3:20 pm - [facility] M.D. at [facility]/24/2019 - Aly Zapien M.D.M05.79 Rheumatoid arthritis with rheumatoid factor of multiple siteZ79.899 Other group home (current) drug ljlzfbbA75.9 Osteoarthritis of knee, vpikawtjcoyB90.551 Pain in right hipG56.01 Carpal tunnel syndrome, right upper limbNew Medication:Wrist Splint - use nightly with thumb stabilizer to help with carpal tunnel features for the rightwrist g56.01New Orders:EMG w/Nerve Conduct Study, Upper, Ordered: Follow up:F/ u in 3 months Functional Status Description No Information Available Mental Status Description No Information Available Referrals Description No Information Available
--- OUTSIDE RECORDS SUMMARY | 2019-10-20 14:56 | XMS REPORT | Summary of Care ---
:1955 Author Organization [facility] Address [address] [address] Care Team Providers Name Role Phone Aly Crews MD Primary Care Provider Reason for Referral Refer to Department Only (Routine) Status Reason Specialty Diagnoses / Referred By Referred To Procedures Contact Contact Authorized Physical Therapy Diagnoses Tendinitis Sushil Cardona Guthrie MD Orthopaedics - [address] [place] [address] [place] [address] [facility] B Phone: [place], [place] [phone] Fax: Reason for Visit Reason Comments Follow Up s/p LTKA 03/17/2019. Patient notes improvement. Encounter Details Date Type Department Care Team Description 09/23/2019 Office Visit [facility] - Sushil Cardona MD Tendinitis (Primary [address] Dx) [address] [facility] [place] [address] [place] [address] [place] [address] [phone] Allergies Active Allergy Reactions Severity Noted Date Comments Tape: Silk Or Adhesive Dermatologic Reaction 02/07/2018 Ciprofloxacin Hcl Unknown Reaction 02/24/2010 Egg Yolk Unknown Reaction 02/28/2019 Egg allergy Lactose Unknown Reaction 02/28/2019 Milk allergy Nitrofurantoin Macrocrystal Rash 03/10/2019 Sulfa Drugs Cross Reactors Unknown Reaction 02/24/2010 documented as of this encounter (statuses as of 09/25/2019) Medications Medication Sig Dispensed Refills Start Date End Date Status propranolol (INDERAL) 40 Take 40 mg by 0 Active MG Oral Tab mouth DIRECTED. Patient takes 40 mg in am & 80 mg pm Pantoprazole Sodium Take by mouth 0 Active (PROTONIX) 40 MG Oral DAILY. Pack mometasone (NASONEX) 50 [place] 1 [place] in 0 Active MCG/ACT Nasal Suspension nose NEEDED. HYDROCHLOROTHIAZIDE PO Take 25 mg by 0 Active mouth. potassium chloride Take 20 mEq by 0 Active (MICRO-K) 10 MEQ Oral Cap mouth TWICE CR DAILY. atorvastatin (LIPITOR) 80 Take 80 mg by 0 Active MG Oral Tab mouth DAILY. amLodipine (NORVASC) 10 Take 5 mg by 0 Active MG Oral Tab mouth DAILY. NITROGLYCERIN PO Take by mouth 0 Active NEEDED. ASCORBIC ACID PO Take by mouth 0 Active DAILY. ALBUTEROL IN Take 2 Puffs by 0 Active inhalation NEEDED. pregabalin (LYRICA) 50 MG Take 1 Cap by 7 Cap 0 04/07/2019 Active Oral Cap mouth DAILY. Max Daily Amount: 50 mg. naproxen (NAPROSYN) 250 Take 250 mg by 0 Active MG Oral Tab mouth TWICE DAILY. Ibuprofen (IBU PO) Take by mouth. 0 Active foliC acid 1 MG Oral Tab Take 1 mg by 0 Active mouth DAILY. documented as of this encounter (statuses as of 09/25/2019) Active Problems Problem Noted Date S/P total knee arthroplasty, left 04/22/2019 Primary osteoarthritis of right knee 04/19/2017 Primary osteoarthritis of left knee 02/16/2017 Knee pain, left 02/25/2014 Ankle pain, left 02/25/2014 BMI 45.0-49.9, adult 02/25/2014 Headache(784.0) 02/24/2010 documented as of this encounter (statuses as of 09/25/2019) Social History Tobacco Use Types Packs/Day Years Used Date Never Smoker Smokeless Tobacco: Never Used Alcohol Use Drinks/Week oz/Week Comments No Sex Assigned at Date Recorded Not on file Job Start Date Occupation Industry Not on file Not on file Not on file Travel History Travel Start Travel End No recent travel history available. documented as of this encounter Last Filed Vital Signs Vital Sign Reading Time Taken Comments Blood Pressure - - Pulse - - Temperature - - Respiratory Rate - - Oxygen Saturation - - Inhaled Oxygen Concentration - - Weight 93.9 kg (207 lb) 09/23/2019 1:08 PM EST Height 149.9 cm (4' 11") 09/23/2019 1:08 PM EST Body Mass Index 41.81 09/23/2019 1:08 PM EST documented in this encounter Progress Notes Sushil Cardona MD - 09/23/2019 1:00 PM EST Name: Sofia Starr : 1955 Date of Service: 09/23/2019 Chief Complaint Patient presents with Follow Up s/p LTKA 03/17/2019. Patient notes improvement. SUBJECTIVE: History of Present Illness: Sofia Starr is a 64-y.o. female who presents to the office today approximately 6 months status post left total knee arthroplasty that was done by myself. She states overall she is doing well. She is without complaints. She denies numbess or tingling in the distal extremity. Says they've been doing range of motion exercises on a routine basis to help improve motion. OBJECTIVE: Physical Examination: Ht 4' 11" (1.499 m) Wt 207 lb (93.9 kg) BMI 41.81 kg/m2 The patient's left total knee arthroplasty incisions are well heal There is no erythema, drainage, or signs of infection present. She has minimal swelling. No ecchymosis. She has 0 degrees extension and 115 degrees of flexion. She is neurovascularly intact distally. ASSESSMENT: S/p Left Total knee arthroplasty PLAN: The patient is going to continue with her range of motion excerises. . She will follow up with me as scheduled for a Recheck in 6 weeks. Should she have any problems prior to then, she will call and we will address them. Author: Sushil Cardona MD 09/23/2019 13:14 documented in this encounter Plan of Treatment Date Type Specialty Care Team Description 11/14/2019 Office Visit Orthopedics Sushil Cardona MD [address] [place] [address] [phone] Name Type Priority Associated Diagnoses Order Schedule REFER TO PHYSICAL Referral Routine Tendinitis Expected: 09/23/2019, THERAPY / REHAB Expires: 09/22/2020 Health Maintenance Due Date Last Done Comments DEPRESSION SCREENING 1969 HIV SCREENING 1972 LIPID DISORDER SCREENING 1975 PAP SMEAR 1978 HEPATITIS C SCREENING 1997 MAMMOGRAM (SCREENING) 1997 Colonoscopy 2007 ZOSTER IMMUNIZATION SERIES (1 of 2007 2) INFLUENZA VACCINE (#1) 2019 DIABETES SCREENING 02/29/2020 02/28/2019 HPV IMMUNIZATION SERIES Aged Out No longer eligible based on patient's age to complete this topic MENINGOCOCCAL VACCINE IMM Aged Out No longer eligible based on patient's age to complete this topic PNEUMOCOCCAL 0-64 YRS Aged Out No longer eligible based on patient's age to complete this topic documented as of this encounter Implants Implanted Type Area Surgical Consultant Device Identifier Shelf Expiration Model / Date Serial / Lot Triathlon Tritanium Baseplate Size 2 - [id number] DM ORTHO 2022 5536-B-200 / Implanted: Qty: 1 on 03/17/2019 by Sushil Cardona MD at [facility] / [id number] Cr Fem Component - Beaded W/Pa 1 Left - [id number] DM ORTHO 2019 5517-F-101 / Implanted: Qty: 1 on 03/17/2019 by Sushil Cardona MD at [facility] / [id number] Triathlon Cs Ins Size2 9mm - [id number] DM ORTHO 09/17/2023 5531-G-209 / Implanted: Qty: 1 on 03/17/2019 by Sushil Cardona MD at [facility] / [id number] documented as of this encounter Results Not on filedocumented in this encounter Visit Diagnoses Diagnosis Tendinitis - Primary Enthesopathy of unspecified site documented in this encounter Insurance Payer Benefit Plan / Subscriber ID Effective Dates Phone Address Type Group [employer]BS EX[employer] BCBS xxxxxxxxxxxx 2014-Present [employer] Guarantor Name Account Type Relation to Date of Phone Billing Patient Address Sofia Starr Personal/Family 1955 [address] (Home) [place], [place] [phone] (Work) documented as of this encounter Advance Directives Code Status Date Activated Date Inactivated Comments Full Code 03/17/2019 11:47 AM 03/19/2019 6:34 PM Does the patient have decision making capacity? Yes Order was discussed with: Patient I discussed all options and patient/surrogate requested and agreed to: Full Code
--- OUTSIDE RECORDS SUMMARY | 2019-10-20 14:56 | XMS REPORT | Summary of Care ---
:1955 Author Organization [facility] Address [address] [address] Care Team Providers Name Role Phone Aly Crews MD Primary Care Provider Reason for Visit Reason Comments Knee Pain left Encounter Details Date Type Department Care Team Description 08/27/2019 Office Visit [facility] Mikaela Bliss, Chronic pain of left knee (Primary Dx); - [facility] Primary osteoarthritis of left knee Therapy [address] [address] [place] [address] [address] [phone] [place] [address] Allergies Active Allergy Reactions Severity Noted Date Comments Tape: Silk Or Adhesive Dermatologic Reaction 02/07/2018 Ciprofloxacin Hcl Unknown Reaction 02/24/2010 Egg Yolk Unknown Reaction 02/28/2019 Egg allergy Lactose Unknown Reaction 02/28/2019 Milk allergy Nitrofurantoin Macrocrystal Rash 03/10/2019 Sulfa Drugs Cross Reactors Unknown Reaction 02/24/2010 documented as of this encounter (statuses as of 08/27/2019) Medications Medication Sig Dispensed Refills Start Date End Date Status propranolol (INDERAL) 40 Take 40 mg by 0 Active MG Oral Tab mouth DIRECTED. Patient takes 40 mg in am & 80 mg pm Pantoprazole Sodium Take by mouth 0 Active (PROTONIX) 40 MG Oral DAILY. Pack mometasone (NASONEX) 50 [place] 1 [place] in 0 Active MCG/ACT Nasal Suspension nose [...] (IBU PO) Take by mouth. 0 Active documented as of this encounter (statuses as of 08/27/2019) Active Problems Problem Noted Date S/P total knee arthroplasty, left 04/22/2019 Primary osteoarthritis of right knee 04/19/2017 Primary osteoarthritis of left knee 02/16/2017 Knee pain, left 02/25/2014 Ankle pain, left 02/25/2014 BMI 45.0-49.9, adult 02/25/2014 Headache(784.0) 02/24/2010 documented as of this encounter (statuses as of 08/27/2019) Social History Tobacco Use Types Packs/Day Years Used Date Never Smoker Smokeless Tobacco: Never Used Alcohol Use Drinks/Week oz/Week Comments No Sex Assigned at Date Recorded Not on file Job Start Date Occupation Industry Not on file Not on file Not on file Travel History Travel Start Travel End No recent travel history available. documented as of this encounter Last Filed Vital Signs Not on filedocumented in this encounter Progress Notes Mikaela Bliss, PT - 08/27/2019 2:00 PM EDT [facility] Treatment Note Outpatient Physical Therapy Services [facility] [address] [place] [phone] Treatment Number: 23 Referring Physician: Sushil Cardona Primary Diagnosis: ICD-9-CM ICD-10-CM 1. Chronic pain of left knee 719.46 M25.562 338.29 G89.29 2. Primary osteoarthritis of left knee 715.16 M17.12 Plan of Care Expiration Date: Time In: 209 Time Out: 229 Total Session Minutes: 20 Pain at Start of Care: 12/15 Pain at End of Care: 11/14 Subjective Comments: Pt reports trying to get back to her normal activities including choir. She has a concert this weekend. Still having buckling of knee. Interventions: Therapeutic Exercises (45043) Patient Education/Home Exercise Program: see exercises below Number of Exercises?: 9 Total Minutes (all Therapeutic Exercise): 20 Exercise #2 Exercise Name: step ups Reason for Exercise: Strengthening Location/Body Area: Knee Sets/Reps: 15x 6" Exercise #3 Exercise Name: Step downs Reason for Exercise: Strengthening Location/Body Area: Knee Sets/Reps: 15x 4" Exercise #4 Exercise Name: bike Reason for Exercise: Muscle Performance Location/Body Area: Knee Sets/Reps: full revolution Exercise #6 Exercise Name: Forward stepping practicing knee unlocking Reason for Exercise: Strengthening Location/Body Area: Knee Sets/Reps: 10x each side Exercise #7 Exercise Name: mini squats Reason for Exercise: Strengthening Location/Body Area: Knee Sets/Reps: 10x Exercise #8 Exercise Name: SLR-forward Reason for Exercise: Strengthening Location/Body Area: Knee Sets/Reps: 2x with assist Exercise #9 Exercise Name: Standing marching, hip abduction Reason for Exercise: Muscle Performance Location/Body Area: Knee Sets/Reps: 15x each Resistance: 3# Assessment: Patient demonstrates buckling of knee consistently today when trying to unlock her knee. This is partly psychological as she has locked out her knee in the past to stabilize herself. She understands the exercises she needs to do to improve this. At this time she feels independent in HEP and will continue with this plan. We will DC to HEP unless she calls for follow up in next few weeks. Plan for Next Visit: Continue with HEP independently Total UNTIMED Code Treatment Minutes: Total TIMED Code Treatment Minutes: 20 Total Treatment Minutes: 20 Author: Mikaela Bliss, PT 08/27/2019 15:16 documented in this encounter Plan of Treatment Date Type Specialty Care Team Description 09/23/2019 Office Visit Orthopedics Sushil Cardona MD [address] [place] [address] [phone] Health Maintenance Due Date Last Done Comments PAP SMEAR 1955 DEPRESSION SCREENING 1969 HIV SCREENING 1972 LIPID DISORDER SCREENING 1975 HEPATITIS C SCREENING 1997 MAMMOGRAM (SCREENING) 1997 COLONOSCOPY SCREENING 2007 ZOSTER IMMUNIZATION SERIES (1 of 2007 [...] of this encounter Implants Implanted Type Area Industrial Truck Mechanic Device Identifier Shelf Expiration Model / Date Serial / Lot Triathlon Tritanium Baseplate Size 2 - [id number] DM [employer] 2022 5536-B-200 / Implanted: Qty: 1 on 03/17/2019 by Sushil Cardona MD at [facility] / [id number] Cr Fem Component - Beaded W/Pa 1 Left - [id number] DM ORTHO 2019 5517-F-101 / Implanted: Qty: 1 on 03/17/2019 by Sushil Cardona MD at [facility] / [id number] [id number] Triathlon Cs Ins Size2 9mm - [id number] DM [employer] 09/17/2023 5531-G-209 / Implanted: Qty: 1 on 03/17/2019 by Sushil Cardona MD at [facility] / [id number] documented as of this encounter Results Not on filedocumented in this encounter Visit Diagnoses Diagnosis Chronic pain of left knee - Primary Pain in joint, lower leg Primary osteoarthritis of left knee Primary localized osteoarthrosis, lower leg documented in this encounter Insurance Payer Benefit Plan / Subscriber ID Effective Dates Phone Address Type Group [employer]BS NIRALIUS BCBS xxxxxxxxxxxx 2014-Present [employer] Guarantor Name Account Type Relation to Date of Phone Billing Patient Address Sofia Starr Personal/Family 1955 [phone] (Home) [place], [place] [phone] (Work) documented as of this encounter Advance Directives Code Status Date Activated Date Inactivated Comments Full Code 03/17/2019 11:47 AM 03/19/2019 6:34 PM Does the patient have decision making capacity? Yes Order was discussed with: Patient I discussed all options and patient/surrogate requested and agreed to: Full Code
[2019-10-20 15:02] VITALS: BP 134/73
--- NOTE | 2019-10-20 15:17 | UC ---
Throat Pain/Nasal Tyrone HPI - HPI Summary HPI Summary: 64-year-old female presents with one-week history of progressively worsening nasal congestion, runny nose, sore throat, bilateral ear fullness, and occasionally productive cough. Reports subjective fever stating that she has been feeling "hot and cold". Has noted over the last 2-3 days that her sputum has changed from a clear to green color. Patient has history of rheumatoid arthritis and is on methotrexate however has not taken this week's dose. States she has prescription for Nasonex nasal spray and an albuterol inhaler however is been unable to find these medications to use. Denies chest pain, shortness of breath, abdominal pain, nausea, or vomiting. - History of Current Complaint Chief Complaint: UCRespiratory Stated Complaint: URI Time Seen by Provider: 10/20/19 14:59 Hx Obtained From: Patient Pain Intensity: 2 - Allergies/Home Medications Allergies/Adverse Reactions: Allergies Allergy/AdvReac Type Severity Reaction Status Date / Time ciprofloxacin [From Cipro] Allergy See Comment Verified 10/20/19 15:04 nitrofurantoin Allergy See Comment Verified 10/20/19 15:04 [From Macrodantin] Sulfa (Sulfonamide Allergy See Comment Verified 10/20/19 15:04 Antibiotics) eggs,milk Allergy Severe Diarrhea Uncoded 10/20/19 15:04 Home Medications: Home Medications Folic Acid TAB* [Folvite TAB*] 1 mg PO DAILY 10/20/19 [History Confirmed ] Methotrexate TAB* 15 mg PO WEEKLY 10/20/19 [History Confirmed 10/20/19] Naproxen Sodium [Naproxen 220 mg] 440 mg PO BID 10/20/19 [History Confirmed ] PMH/Surg Hx/FS Hx/Imm Hx - Additional Past Medical History Additional PMH: Rheumatoid arthritis Endocrine History: Dyslipidemia Cardiovascular History: Cardiac Disease, Hypertension GI/ History: Gastroesophageal Reflux - Surgical History Surgical History: Yes Surgery Procedure, Year, and Place: C-sections x 5, cardiac cath with three stents, L knee replacement - Family History Known Family History: Positive: Hypertension - Social History Occupation: Retired Lives: With Family Alcohol Use: None Substance Use Type: None Smoking Status (MU): Never Smoked Tobacco Have You Smoked in the Last Year: No - Immunization History Most Recent Influenza Vaccination: never Most Recent Pneumonia Vaccination: unknown Review of Systems All Other Systems Reviewed And Are Negative: Yes Constitutional: Positive: Fever - Subjective, Chills ENT: Positive: Sore Throat, Ear Ache, Nasal Discharge, Sinus Congestion, Sinus Pain/Tenderness Respiratory: Positive: Cough. Negative: Shortness Of Breath Cardiovascular: Negative: Palpitations, Chest Pain Gastrointestinal: Negative: Abdominal Pain, Vomiting, Diarrhea, Nausea Genitourinary: Positive: Negative Musculoskeletal: Positive: Negative Neurological: Positive: Negative Is Patient Immunocompromised?: No Physical Exam - Summary Physical Exam Summary: GENERAL APPEARANCE: Alert and cooperative obese female who appears to be in no acute distress. EYES: Conjunctiva clear. No drainage. EARS: External auditory canals and tympanic membranes clear, hearing grossly intact. NOSE: Moderate nasal congestion. Clear nasal discharge. THROAT: Pharyngeal cobblestoning. No tonsilar inflammation, swelling, exudate, or lesions. Uvula midline. NECK: Neck supple, non-tender without lymphadenopathy. CARDIAC: Normal S1 and S2. No S3, S4 or murmurs. Rhythm is regular. There is no peripheral edema, cyanosis or pallor. Extremities are warm and well perfused. Capillary refill is less than 2 seconds. Peripheral pulses intact. LUNGS: Clear to auscultation without rales, rhonchi, wheezing or diminished breath sounds. Non-productive cough. ABDOMEN: Positive bowel sounds. Soft, nondistended, nontender. No guarding or rebound. No masses or hepatosplenomegally. MUSKULOSKELETAL: ROM intact to all extremities. No joint erythema or tenderness. Normal muscular development. Normal gait. SKIN: Skin normal color, texture and turgor with no lesions or eruptions. Triage Information Reviewed: Yes Vital Signs: Initial Vital Signs Temp 96.8 F 10/20/19 14:57 Pulse 70 10/20/19 14:57 Resp 16 10/20/19 14:57 BP 134/73 10/20/19 14:57 Pulse Ox 99 10/20/19 14:57 Vital Signs Reviewed: Yes Throat Pain/Nasal Course/Dx - Course Course Of Treatment: 64-year-old female presents with one-week history of progressively worsening nasal congestion, runny nose, sore throat, bilateral ear fullness, and occasionally productive cough. Reports subjective fever stating that she has been feeling "hot and cold". Has noted over the last 2-3 days that her sputum has changed from a clear to green color. Patient has history of rheumatoid arthritis and is on methotrexate however has not taken this week's dose. States she has prescription for Nasonex nasal spray and an albuterol inhaler however is been unable to find these medications to use. Denies chest pain, shortness of breath, abdominal pain, nausea, or vomiting. Afebrile. Vital signs stable. Patient had moderate nasal congestion, clear nasal discharge, pharyngeal cobblestoning, no tonsillar swelling or exudate, no cervical lymphadenopathy, clear bilateral breath sounds, nonproductive cough, but otherwise unremarkable exam. Discussed with the patient that with the progressively worsening symptoms and her being on methotrexate will treat her for an upper respiratory infection with Augmentin 875 mg twice a day 10 days. I will refill her prescriptions for the mometasone nasal spray and albuterol inhaler as well as provide her with a prescription for Tessalon Perles 1 capsule every 8 hours as needed for cough. She is to follow-up with her primary care provider in 3 days if symptoms are not improving. Anticipatory guidance warning symptoms were reviewed with the patient. He verbalizes understanding and agrees with plan of care. - Differential Dx/Diagnosis Differential Diagnosis/HQI/PQRI: Influenza, Sinusitis, URI, Other - Pneumonia Provider Diagnosis: URI with cough and congestion Discharge ED - Sign-Out/Discharge Documenting (check all that apply): Patient Departure All imaging exams completed and their final reports reviewed: No Studies - Discharge Plan Condition: Stable Disposition: HOME Prescriptions: Albuterol HFA INHALER* [Ventolin HFA Inhaler*] 2 puff INH Q4H PRN #1 mdi PRN Reason: Sob/Wheezing Amoxicillin/Clavulanate TAB* [Augmentin TAB 875*] 875 mg PO BID 10 Days #20 tab Benzonatate CAP* [Tessalon 100 MG CAP*] 100 mg PO TID PRN #21 cap PRN Reason: Cough Mometasone NASAL (NF) [Nasonex (NF)] 50 mcg NASAL DAILY #1 nasal.spr MDD 2 sprays Patient Education Materials: Upper Respiratory Infection (ED) Referrals: Aly Crews MD [Primary Care Provider] - 3 Days (If no improvement.) Additional Instructions: Your history and exam are consistent with an upper respiratory infection. Considering the worsening of your symptoms and the fact that you are on methotrexate we will start you on an antibiotic to treat the infection. Start Augmentin 875 mg twice a day for 10 days. Take with food upsets stomach. Be sure to take the entire course even if feeling better. Use a saline rinse kit such as Neti Pot or NeilMed at least twice a day to help thin secretions and promote drainage of the sinuses. Use mometasone (Nasonex) nasal spray 2 sprays each nostril once daily. Use your albuterol inhaler 2 puffs every 4-6 hours as needed for any shortness of breath or wheezing. Take Tessalon Perles 1 capsule every 8 hours as needed for cough. Take over the counter acetaminophen (Tylenol) or ibuprofen (Advil, Motrin) according to directions as needed for pain or fever. Use salt water gargles several times a day if you have a sore throat. You may also use Chloraseptic spray or Cepacol lonzenges according to directions which contain a numbing medication and can provide some temporary relief from your sore throat. Follow up with your primary care provider in 3 days if symptoms do not improve. Seek immediate medical attention in the emergency room if you have fever greater than 100.5 F despite taking acetaminophen or ibuprofen, have chest pain , difficulty breathing, are unable to swallow, or have any worsening of symptoms. - Billing Disposition and Condition Condition: STABLE Disposition: Home - Attestation Statements Provider Attestation: Per institutional requirements, I have reviewed the chart, however, I was not consulted specifically or made aware of this patient by the midlevel provider. I did not personally evaluate, interact with , or disposition this patient.
== END 2019-10-20 16:02 | disposition home or self-care (01) ==
LOC: UCEAST 14:51
DX: J06.9 Acute upper respiratory infection, unspecified (principal); R05 Cough; R09.81 Nasal congestion; M06.9 Rheumatoid arthritis, unspecified; I10 Essential (primary) hypertension; Z91.012 Allergy to eggs; Z91.011 Allergy to milk products; Z88.2 Allergy status to sulfonamides; Z88.1 Allergy status to other antibiotic agents
CPT/HCPCS: 99212; G0463

== ENCOUNTER 2020-02-22 10:19 | Emergency (ER) | payer BC, OTHER ==
--- OUTSIDE RECORDS SUMMARY | 2020-02-22 11:04 | XMS REPORT | Continuity of Care Document ---
:1955 External Reference #:[id number] Author Name Aly Zapien M.D. 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 Problems Provider Date Angina pectoris Kaila Baird MD, [facility], [facility] Onset: 01/17/2018 Social History Type Date Description [...] Medications SIG Qnty Indications Ordering Date Provider Tramadol HCL take one 60tabs Aly Zapien, 50mg Tablets capsule/tablet by M.DCynthia 0 mouth twice daily as needed for pain Wrist Splint use nightly with 2units G56.01 Aly Zapien, Misc thumb stabilizer M.DCynthia 9 to help with carpal tunnel features for the right wrist g56.01 Methotrexate take 6 tablets by 60tabs Aly Zapien, 2.5mg Tablets mouth once a week M.D. 8 Folic Acid take one 90tabs Aly Zapien, [...] Available Vital Signs Date Vital Result Comment 12/25/2019 3:10pm Height 59 inches 4'11" Weight 220.12 lb Heart Rate 62 /min BP Systolic Sitting 110 mmHg BP Diastolic Sitting 69 mmHg Body Temperature 97.1 F Pain Level 3 O2 % BldC Oximetry 98 % BMI (Body Mass Index) 44.5 kg/m2 09/24/2019 9:46am Height 59 inches 4'11" Weight 214.00 lb Heart Rate 60 /min BP Systolic Sitting 116 mmHg BP Diastolic Sitting 72 mmHg Respiratory Rate 16 /min Body Temperature 97.7 F Pain Level 3 mostly in the left thumb, RT hip, LT knee BMI (Body Mass Index) 43.2 kg/m2 Results Test Acquired Date Facility Test Result H/L Range Note CBC Auto 12/23/2019 White Blood 7.1 10^3/uL Normal 3.5-10.[address] [place] [address] [phone] Red Blood Count 4.47 10^6/uL Normal 3.70-4.87 Hemoglobin 12.8 g/dL Normal 12.0-16.0 Hematocrit 38 % Normal 35-47 Mean Corpuscular Volume 85 fL Normal 80-97 Mean Corpuscular Hemoglobin 29 pg Normal 27-31 Mean Corpuscular HGB Conc 33 g/dL Normal 31-36 Red Cell Distribution Width 17 % High 10-15 Platelet Count 317 10^3/uL Normal 150-450 Mean Platelet Volume 9.1 fL Normal 7.4-10.4 Abs Neutrophils 3.5 10^3/uL Normal 1.5-7.7 Abs Lymphocytes 2.7 10^3/uL Normal 1.0-4.8 Abs Monocytes 0.6 10^3/uL Normal 0-0.8 Abs Eosinophils 0.3 10^3/uL Normal 0-0.6 Abs Basophils 0.0 10^3/uL Normal 0-0.2 Abs Nucleated RBC 0.0 10^3/uL Granulocyte % 49.2 % Lymphocyte % 37.6 % Monocyte % 8.5 % Eosinophil % 4.4 % Basophil % 0.3 % Nucleated Red Blood Cells % 0.0 Laboratory test 12/23/2019 Erythrocyte Sed 20 mm/Hr Normal 0-29 [address] [place] [address] [phone] Comp Metabolic 12/23/2019 Sodium 142 Normal 135- [address] mmol/[place] [address] [phone] Potassium 4.0 mmol/L Normal 3.5-5.0 Chloride 107 mmol/L Normal 101-111 Co2 Carbon Dioxide 27 mmol/L Normal 22-32 Anion Gap 8 mmol/L Normal 2-11 Glucose 137 mg/dL High 70-100 Blood Urea Nitrogen 23 mg/dL Normal 6-24 Creatinine 1.01 mg/dL High 0.51-0.95 BUN/Creatinine Ratio 22.8 High 8-20 Calcium 9.2 mg/dL Normal 8.6-10.3 Total Protein 6.9 g/dL Normal 6.4-8.9 Albumin 3.7 g/dL Normal 3.2-5.2 Globulin 3.2 g/dL Normal 2-4 Albumin/Globulin Ratio 1.2 Normal 1-3 Total Bilirubin 0.50 mg/dL Normal 0.2-1.0 Alkaline Phosphatase 102 U/L Normal 34-104 Alt 15 U/L Normal 7-52 Ast 16 U/L Normal 13-39 Egfr Non- 55.5 >60 Egfr 67.2 >60 2 Laboratory test 12/23/2019 C Reactive 8.65 mg/L High <8.01 [address] [place] [address] [phone] Laboratory test 09/24/2019 Erythrocyte Sed 19 mm/Hr Normal 0-[address] [place] [address] [phone] C Reactive Protein 4.29 mg/L Normal <8.01 4 CBC Auto 09/24/2019 White Blood 6.8 10^3/uL Normal 3.5-10.[address] [place] [address] [phone] Red Blood Count 4.61 10^6/uL Normal 3.70-4.87 Hemoglobin 12.7 g/dL Normal 12.0-16.0 Hematocrit 39 % Normal 35-47 Mean Corpuscular Volume 85 fL Normal 80-97 Mean Corpuscular Hemoglobin 28 pg Normal 27-31 Mean Corpuscular HGB Conc 33 g/dL Normal 31-36 Red Cell Distribution Width 19 % High 10-15 Platelet Count 296 10^3/uL Normal 150-450 Mean Platelet Volume 8.5 fL Normal 7.4-10.4 Abs Neutrophils 3.4 10^3/uL Normal 1.5-7.7 Abs Lymphocytes 2.6 10^3/uL Normal 1.0-4.8 Abs Monocytes 0.6 10^3/uL Normal 0-0.8 Abs Eosinophils 0.3 10^3/uL Normal 0-0.6 Abs Basophils 0.1 10^3/uL Normal 0-0.2 Abs Nucleated RBC 0.0 10^3/uL Granulocyte % 49.5 % Lymphocyte % 37.5 % Monocyte % 8.3 % Eosinophil % 3.8 % Basophil % 0.9 % Nucleated Red Blood Cells % 0.1 Comp Metabolic 09/24/2019 Sodium 140 mmol/L Normal 135-[address] [place] [address] [phone] Potassium 4.0 mmol/L Normal 3.5-5.0 Chloride 104 mmol/L Normal 101-111 Co2 Carbon Dioxide 30 mmol/L Normal 22-32 Anion Gap 6 mmol/L Normal 2-11 Glucose 86 mg/dL Normal 70-100 Blood Urea Nitrogen 16 mg/dL Normal 6-24 Creatinine 0.93 mg/dL Normal 0.51-0.95 BUN/Creatinine Ratio 17.2 Normal 8-20 Calcium 9.7 mg/dL Normal 8.6-10.3 Total Protein 7.3 g/dL Normal 6.4-8.9 Albumin 3.9 g/dL Normal 3.2-5.2 Globulin 3.4 g/dL Normal 2-4 Albumin/Globulin Ratio 1.1 Normal 1-3 Total Bilirubin 0.80 mg/dL Normal 0.2-1.0 Alkaline Phosphatase 84 U/L Normal 34-104 Alt 15 U/L Normal 7-52 Ast 18 U/L Normal 13-39 Egfr Non- 61.1 >60 Egfr 73.9 >60 5 Laboratory test 09/24/2019 [facility] [place] Standing Orders Esr Sedimentation <pending> finding Rate CRP C-Reactive Protein <pending> CBC W/Auto Diff 09/24/2019 [facility] [place] Standing Orders White Blood Count <pending> RBC [...] <pending> Absolute Neutrophils <pending> CMP Panel 09/24/2019 [facility] [place] Standing Orders Albumin <pending> Alt - SGPT <pending> Calcium <pending> Carbon Dioxide <pending> Chloride <pending> Creatinine <pending> Glucose Serum <pending> Alkaline Phosphatase <pending> Potassium <pending> Total Protein <pending> Sodium <pending> Ast - Sgot <pending> BUN - Urea Nitrogen <pending> 1 STANDING ORDER Q3 MONTHS ORDERED 09/24/19 EXPIRES 03/24/19 2 Because ethnic data is not always [...] 15-29 5 Kidney failure <15 (or dialysis) 3 STANDING ORDER Q3 MONTHS ORDERED 09/24/19 EXPIRES 03/24/19 4 FASTING 5 Because ethnic data is not always readily [...] (or dialysis) Procedures Date Code Description Status 01/22/2020 38090 Nerve Conduction 03-04 Studies Completed 01/22/2020 89578 Needle Electromyography Each Extremity W/Related Completed Paraspinal Areas 09/11/2019 96546 EKG Tracing & Interpretation Completed Medical Devices Description No Information Available Encounters Type Date Location Provider Dx Diagnosis Office Visit 02/05/2020 Rheumatology Aisha Devi5.79 Rheu arthritis w 2:40p [facility] Felicia rheu factor [facility] [place] site w/o org/sys involv G56.01 Carpal tunnel syndrome, right upper limb Z79.899 Other long term care pharmacist (current) drug therapy R94.4 Abnormal results of kidney function studies Office Visit 12/25/2019 3:20p Rheumatology Aisha Devi5.79 Rheu arthritis [facility] Felicia w rheu factor mult site w/o org/sys involv Z79.899 Other longterm (current) drug therapy R94.4 Abnormal results of kidney function studies M17.9 Osteoarthritis of knee, unspecified Office Visit 09/24/2019 9:20a Rheumatology Aly Zapien M05.79 Rheu arthritis [facility] Felicia w rheu factor mult site w/o org/sys involv Z79.899 Other long term care pharmacist (current) drug therapy M17.9 Osteoarthritis of knee, unspecified M25.551 Pain in right hip G56.01 Carpal tunnel syndrome, right upper limb Office Visit 09/11/2019 2:40p [facility] Shadiataybjhonny S. I10 Essential Felicia Gibson (primary) hypertension E78.5 Hyperlipidemia, unspecified I25.10 Athscl heart disease of [place] coronary artery w/o ang pctrs E66.9 Obesity, unspecified Z98.61 Coronary angioplasty status Assessments Date Code Description Provider 02/05/2020 M05.79 Rheumatoid arthritis with rheumatoid Aly Zapien M.D. factor of [facility] site 02/05/2020 G56.01 Carpal tunnel syndrome, right upper Aly Zapien M.D. limb 02/05/2020 Z79.899 Other long term care pharmacist (current) drug therapy Aly Zapien M.D. 02/05/2020 R94.4 Abnormal results of kidney function Aly Zapien M.D. studies 01/22/2020 G56.01 Carpal tunnel syndrome, right upper Emily Martins MD limb 12/25/2019 M05.79 Rheumatoid arthritis with rheumatoid Aly Zapien M.D. factor of multiple site 12/25/2019 Z79.899 Other longterm (current) drug therapy Aly Zapien M.D. 12/25/2019 R94.4 Abnormal results of kidney function Aly Zapien M.D. studies 12/25/2019 M17.9 Osteoarthritis of knee, unspecified Aly Zapien M.D. 09/24/2019 M05.79 Rheumatoid arthritis with rheumatoid Aly Zapien M.D. factor of multiple site 09/24/2019 Z79.899 Other longterm (current) drug therapy Aly Zapien M.D. 09/24/2019 M17.9 Osteoarthritis of knee, unspecified Aly Zapien M.D. 09/24/2019 M25.551 Pain in right hip Aly Zapien M.D. 09/24/2019 G56.01 Carpal tunnel syndrome, right upper Aly Zapien M.D. limb 09/11/2019 I10 Essential (primary) hypertension Heather Gibson M.D. 09/11/2019 E78.5 Hyperlipidemia, unspecified Heather Gibson M.D. 09/11/2019 I25.10 Atherosclerotic heart disease of Heather Gibson M.D. [place] coronary artery with 09/11/2019 E66.9 Obesity, unspecified Heather Gibson M.D. 09/11/2019 Z98.61 Coronary angioplasty status Heather Gibson M.D. Plan of Treatment No Information Available Functional Status Description No Information Available Mental Status Description No Information Available Referrals Description No Information Available
--- OUTSIDE RECORDS SUMMARY | 2020-02-22 11:04 | XMS REPORT | Continuity of Care Document ---
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 0 mouth twice daily as needed for pain Wrist Splint use nightly with 2units G56.01 Aly Zapien, Misc thumb stabilizer M.D. 9 to help with carpal tunnel features for the right wrist g56.01 Methotrexate take 6 tablets by 60tabs Aly Zapien, 2.5mg Tablets mouth once a week M.D. 8 Folic Acid take one 90tabs Aly Olmosdor, 1mg Tablets capsule/tablet M.D. 8 daily by mouth Foot Smoother Dual please provide 2units M60.9 Aly Olmosdor, Surface comfortable shoe M.D. 8 Misc insert [...] Result H/L Range Note CBC Auto 12/23/2019 [facility] White Blood 7.1 10^3/uL Normal 3.5-10.[address] [place] [address] [phone] Red Blood Count 4.47 10^6/uL Normal 3.70-4.87 [...] Blood Cells % 0.0 Laboratory test 12/23/2019 [facility] Erythrocyte Sed 20 mm/Hr Normal 0-29 [address] [place] [address] [phone] Comp Metabolic 12/23/2019 [facility] Sodium 142 Normal 135- [address] mmol/[place] [address] [phone] Potassium 4.0 mmol/L Normal 3.5-5.0 Chloride 107 [...] Egfr 67.2 >60 2 Laboratory test 12/23/2019 [facility] C Reactive 8.65 mg/L High <8.01 [address] [place] [address] [phone] Laboratory test 09/24/2019 [facility] Erythrocyte Sed 19 mm/Hr Normal 0-[address] [place] [address] [phone] C Reactive Protein 4.29 mg/L Normal <8.01 4 CBC Auto 09/24/2019 [facility] White Blood 6.8 10^3/uL Normal 3.5-10.[address] [place] [address] [phone] Red Blood Count 4.61 10^6/uL Normal 3.70-4.87 [...] Blood Cells % 0.1 Comp Metabolic 09/24/2019 [facility] Sodium 140 mmol/L Normal 135-[address] [place] [address] [phone] Potassium 4.0 mmol/L Normal 3.5-5.0 Chloride 104 [...] Egfr 73.9 >60 5 Laboratory test 09/24/2019 [facility] [place] Esr Sedimentation <pending> finding Rate CRP C-Reactive Protein <pending> CBC W/Auto Diff 09/24/2019 [facility] [place] Standing Orders White Blood Count <pending> RBC [...] <pending> Absolute Neutrophils <pending> CMP Panel 09/24/2019 [facility] [place] Standing Orders Albumin <pending> Alt - SGPT [...] dialysis) Procedures Date Code Description Status 01/22/2020 67764 Nerve Conduction 03-04 Studies Completed 01/22/2020 57658 Needle Electromyography Each Extremity W/Related Completed Paraspinal Areas 09/11/2019 74773 EKG Tracing & Interpretation Completed Medical Devices Description No Information Available Encounters Type Date Location Provider Dx Diagnosis Office Visit 12/25/2019 Rheumatology Aly Zapien, Aisha5.79 Rheu arthritis w 3:20p [facility] rheu factor mult site w/o org/sys involv Z79.899 Other termite control servicer (current) drug therapy R94.4 Abnormal results of kidney function studies M17.9 Osteoarthritis of knee, unspecified Office Visit 09/24/2019 9:20a Rheumatology Aly Zapien M05.Janie Rheu arthritis [facility] w rheu factor mult site w/o org/sys involv Z79.899 Other termite control servicer (current) drug therapy M17.9 Osteoarthritis of knee, unspecified M25.551 Pain in right hip G56.01 Carpal tunnel syndrome, right upper limb Office Visit 09/11/2019 2:40p [facility] Shadiatanathan S. I10 Wendy Gibson M.D. (primary) hypertension E78.5 Hyperlipidemia, unspecified I25.10 Athscl heart disease of [place] coronary artery w/o ang pctrs E66.9 Obesity, unspecified Z98.61 Coronary angioplasty status Assessments Date Code Description Provider 02/05/2020 M05.79 Rheumatoid arthritis with rheumatoid Aly Zapien M.D. factor of [facility] site 02/05/2020 G56.01 Carpal tunnel syndrome, right upper Aly Zapien M.D. limb 02/05/2020 Z79.899 Other [facility] (current) drug therapy Aly Zapien M.D. 02/05/2020 R94.4 Abnormal results of kidney function Aly Zapien M.D. studies 01/22/2020 G56.01 Carpal tunnel syndrome, right upper Emily Martins MD limb 12/25/2019 M05.79 Rheumatoid arthritis with rheumatoid Aly Zapien M.D. factor of multiple site 12/25/2019 Z79.899 Other termite control servicer (current) drug therapy Aly Zapien M.D. 12/25/2019 R94.4 Abnormal results of kidney function Aly Zapien M.D. studies 12/25/2019 M17.9 Osteoarthritis of knee, unspecified Aly Zapien M.D. 09/24/2019 M05.79 Rheumatoid arthritis with rheumatoid Aly Zapien M.D. factor of multiple site 09/24/2019 Z79.899 Other termite control servicer (current) drug therapy Aly Zapien M.D. 09/24/2019 M17.9 Osteoarthritis of knee, unspecified Aly Zapien M.D. 09/24/2019 M25.551 Pain in right hip Aly Zapien M.D. 09/24/2019 G56.01 Carpal tunnel syndrome, right upper Aly Zapien M.D. limb 09/11/2019 I10 Essential (primary) hypertension Heather Gibson M.D. 09/11/2019 E78.5 Hyperlipidemia, unspecified Heather Gibson M.D. 09/11/2019 I25.10 Atherosclerotic heart disease of Heather Gibson M.D. [place] coronary artery with 09/11/2019 E66.9 Obesity, unspecified Heather Gibson M.D. 09/11/2019 Z98.61 Coronary angioplasty status Heather Gibson M.D. Plan of Treatment No Information Available Functional Status Description No Information Available Mental Status Description No Information Available Referrals Description No Information Available
--- NOTE | 2020-02-22 11:06 | UC ---
General HPI - HPI Summary HPI Summary: Pleasant 28 yo female c/o progressive R shoulder pain over the last 3 days. No fever / chills. No current cough / sob / cp / palpitations. No GI issues. No rash. No injury, thought she might have slept wrong, but then realized it didn't seem to be the case. Pain in R shoulder, but pain extends to R bicep and elbow. Hx CTS R (and probably L), this has been hurting but not increased over the last 3 days. No new p/d/w. No neck pain, except with tightness from trying not to move shoulder. - History of Current Complaint Stated Complaint: ARM COMPLAINT Time Seen by Provider: 02/22/20 11:06 Hx Obtained From: Patient - Allergy/Home Medications Allergies/Adverse Reactions: Allergies Allergy/AdvReac Type Severity Reaction Status Date / Time ciprofloxacin [From Cipro] Allergy See Comment Verified 02/22/20 11:14 nitrofurantoin Allergy See Comment Verified 02/22/20 11:14 [From Macrodantin] Sulfa (Sulfonamide Allergy See Comment Verified 02/22/20 11:14 Antibiotics) eggs,milk Allergy Severe Diarrhea Uncoded 02/22/20 11:14 Home Medications: Home Medications Hydrochlorothiazide TAB* [Hydrodiuril TAB*] 50 mg PO DAILY 08/20/12 [History Confirmed 02/22/20] Pantoprazole TAB * [Protonix TAB*] 20 mg PO BID 08/20/12 [History Confirmed ] Propranolol 40 mg TAB [Inderal TAB*] 40 mg PO QAM 08/20/12 [History Confirmed ] Propranolol 40 mg TAB [Inderal TAB*] 80 mg PO QPM 08/16/17 [History Confirmed ] B12 500 mcg PO DAILY 10/15/17 [History Confirmed 02/22/20] Multi Vitamin 1 tab PO DAILY 10/15/17 [History Confirmed 02/22/20] Vitamin C 1,000 mg PO DAILY 10/15/17 [History Confirmed 02/22/20] Aspirin 81 mg CHEW TAB* 81 mg PO DAILY tab.chew 10/19/17 [Rx Confirmed 02/22/20 ] Atorvastatin* [Lipitor 80 MG*] 80 mg PO 1700 #30 tab 10/19/17 [Rx Confirmed ] Nitroglycerin TAB 0.4 MG* 0.4 mg SL Q5M PRN #20 tab 10/19/17 [Rx Confirmed 02/21] Potassium Chloride [K-Tab ER] 20 meq PO DAILY 01/18/18 [History Confirmed ] amLODIPine TAB* [Norvasc 5 mg TAB*] 5 mg PO DAILY 01/18/18 [History Confirmed ] Albuterol HFA INHALER* [Ventolin HFA Inhaler*] 2 puff INH Q4H PRN #1 mdi [Rx Confirmed 02/22/20] Folic Acid TAB* [Folvite TAB*] 1 mg PO DAILY 10/20/19 [History Confirmed ] Methotrexate TAB* 15 mg PO WEEKLY 10/20/19 [History Confirmed 02/22/20] Mometasone NASAL (NF) [Nasonex (NF)] 50 mcg NASAL DAILY #1 nasal.spr MDD 2 sprays 10/20/19 [Rx Confirmed 02/22/20] Naproxen Sodium [Naproxen 220 mg] 440 mg PO PRN 10/20/19 [History Confirmed ] Acetaminophen with Codeine [Acetaminophen-Cod #3 Tablet] 1 tab PO Q6H PRN #32 tablet MDD 4 02/22/20 [Rx] Cholecalciferol TAB* [Vitamin D TAB*] 02/22/20 [History] PMH/Surg Hx/FS Hx/Imm Hx Previously Healthy: No - rheumatoid arthritis - Surgical History Surgical History: Yes Surgery Procedure, Year, and Place: C-sections x 5, cardiac cath with three stents, L knee replacement - Family History Known Family History: Positive: Hypertension - Social History Alcohol Use: None Substance Use Type: None Smoking Status (MU): Never Smoked Tobacco Have You Smoked in the Last Year: No - Immunization History Most Recent Influenza Vaccination: never Most Recent Pneumonia Vaccination: unknown Review of Systems All Other Systems Reviewed And Are Negative: Yes Constitutional: Positive: Negative - no new issues Skin: Positive: Negative - see hpi Eyes: Positive: Negative ENT: Positive: Negative Respiratory: Positive: Negative Cardiovascular: Positive: Negative Gastrointestinal: Positive: Negative Genitourinary: Positive: Negative Motor: Positive: Other - see hpi Neurovascular: Positive: Other - see hpi Musculoskeletal: Positive: Other: - see hpi Neurological/Mental Status: Positive: Other - see hpi Psychological: Positive: Negative Is Patient Immunocompromised?: No Physical Exam Triage Information Reviewed: Yes Appearance: Well-Nourished - sitting up, able to move to exam table with assistance looks tired, but nad, nontoxic general appearance Vital Signs Reviewed: Yes Eye Exam: Normal ENT Exam: Normal - nad Neck exam: Other - R trap + mild tender / spasm, no point neck tenderness Neck: Positive: No Lymphadenopathy Respiratory Exam: Normal Respiratory: Positive: Chest non-tender, Lungs clear, Normal breath sounds, No respiratory distress, No accessory muscle use Cardiovascular Exam: Normal Cardiovascular: Positive: RRR, Pulses Normal, Brisk Capillary Refill Abdominal Exam: Normal Abdomen Description: Positive: Nontender Musculoskeletal Exam: Other - R ant shoulder ++ tender ac area ROM difficult to assess, tender with abduction and extension, both passive and active. Unable to move more than 5-10 deg both abd / ext R elbow from, but + click with flexion over R lat epicondyle R/U p palpable. Distal finger cap refill is good. Dec sens dig 1-3 (cts, with recent emg noted in [employer]). FROM wrist and hand / fingers Neurological Exam: Other - see [facility] [place] Psychological Exam: Normal - nad Skin Exam: Normal - no visible or reported rash good general color nondiaphoretic Course/Dx - Course Course Of Treatment: Reference #: [id number] Reviewed narc talk. No hx issues. codeine has helped in the past. Rx T #3, d/w pt. Reports able to take naproxen as needed (daily or every other day, over the counter. Has some at home). Orthopedist is Dr. Cardona, she will call his office to arrange f/u. (type of f/ u per Dr. Cardona, ex telemed vs in person) Also will cont routine f/u Dr. Yao (last telemed appt was last week) Reviewed coa / tx plan. Questions as posed answered to the best of my ability. Sling for comfort. Reviewed xray reports with pt. Reviewed coa / tx plan. Questions as posed answered to the best of my ability. Elbow R - no fx, mild osteoarthropathy. See [employer] report. Shoulder R - supraspinatus calcific tendinosis. mild AC and GH osteoarthopathy - Diagnoses Provider Diagnosis: Calcific tendonitis of right shoulder, Arthritis Discharge ED - Sign-Out/Discharge Documenting (check all that apply): Patient Departure All imaging exams completed and their final reports reviewed: Yes - Discharge Plan Condition: Stable Disposition: HOME Patient Education Materials: Calcific Tendinitis (ED), Arthritis (ED) Referrals: Sushil Cardona MD [Medical Doctor] - Aly Zapien MD [Medical Doctor] - Aly Crews MD [Primary Care Provider] - Additional Instructions: Sling as needed for comfort. Please call Dr. Cardona's office on Sunday to arrange follow up (telemedicine or in person, check with Dr. Cardona's office). Please seek medical attention for worse or new problems. - Billing Disposition and Condition Condition: STABLE Disposition: Home
[2020-02-22 11:13] VITALS: BP 139/68
== END 2020-02-22 13:13 | disposition home or self-care (01) ==
LOC: UCEAST 10:19
DX: M75.31 Calcific tendinitis of right shoulder (principal); M19.011 Primary osteoarthritis, right shoulder; M19.021 Primary osteoarthritis, right elbow; M06.9 Rheumatoid arthritis, unspecified; Z79.82 Long term (current) use of aspirin; Z79.899 Other long term (current) drug therapy; Z95.5 Presence of coronary angioplasty implant and graft; Z96.652 Presence of left artificial knee joint; Z88.2 Allergy status to sulfonamides; Z88.1 Allergy status to other antibiotic agents; Z91.012 Allergy to eggs; Z91.011 Allergy to milk products
CPT/HCPCS: 99213; G0463